=== PATIENT | male | born 1945 | race Caucasian/White ===

== ENCOUNTER 2020-02-09 00:59 | Outpatient (CLI) | payer MEDICARE, BC, SELFPAY ==
[2020-02-09 09:18] LABS: Abs Immature Grans 0.03 k/cumm (0.0-0.09); HCT 31.5 % (40.0-50.0); Mean Corp. HGB Concentration 31.7 g/dL (32.0-36.0); Mean Corpuscular Volume 107.1 fL (80-95); Mean Platelet Volume 12.5 fL (8.0-11.0); RBC 2.94 m/cumm (4.50-6.00); RBC Distribution Width 17.7 % (11.8-14.1); White Blood Cell Count 5.79 k/cumm (4.4-10.8)
[2020-02-09 09:39] LABS: Absolute Basophil Count 0.12 k/cumm (0.0-0.2); Absolute Eosinophil Count 0.23 k/cumm (0.0-0.7); Absolute Lymphocyte Count 1.51 k/cumm (1.2-3.4); Absolute Monocyte Count 0.87 k/cumm (0.11-0.7); Absolute Neutrophil Count 3.01 k/cumm (1.2-6.7); Anisocytosis 2+; Basophilic Stippling Present; Diff Comment Manual Differential; Hypochromasia 1+; Macrocytosis 2+; Polychromasia Present
[2020-02-09 09:40] LABS: Platelet Count 310 x1000/uL (130-400)
[2020-02-09 09:41] LABS: Poikilocytes 2+
== END 2020-02-09 01:19 ==
PROVIDERS: Visit Provider Internal Medicine Hematology & Oncology
DX: N18.3 Chronic kidney disease, stage 3 (moderate) (principal); D63.1 Anemia in chronic kidney disease
CPT/HCPCS: 36415; 85025

== ENCOUNTER 2020-02-23 02:17 | Outpatient (CLI) | payer MEDICARE, BC, SELFPAY ==
[2020-02-23 10:38] LABS: Abs Immature Grans 0.05 10^3/uL (0.0-0.06); Absolute Basophil Count 0.05 10^3/uL (0.0-0.2); Absolute Eosinophil Count 0.16 10^3/uL (0.0-0.7); Absolute Lymphocyte Count 1.24 10^3/uL (1.2-3.4); Absolute Monocyte Count 0.75 10^3/uL (0.1-0.8); Absolute Neutrophil Count 2.21 10^3/uL (1.2-6.7); Basophils % 1.1; Eosinophils % 3.6; HCT 30.5 % (40.0-50.0); HGB 9.8 g/dL (13.5-17.5); Immature Grans % 1.1; Lymphocytes % 27.8; MCH 34.1 pg (27.0-33.0); MCHC 32.1 % (32.0-36.0); MCV 106.3 fL (80-95); MPV 13.6 fL (8.0-11.0); Monocytes % 16.8; Neutrophils % 49.6; Nucleated RBC 0 %; RBC 2.87 10^6/uL (4.36-5.78); RDW 17.4 % (11.8-14.1); RDW-SD 66.7 fL; WBC 4.46 10^3/uL (4.4-10.8)
[2020-02-23 11:06] LABS: Platelet Count 272 10^3/uL (130-400)
[2020-02-23 11:08] LABS: Anisocytosis 2+; Macrocytosis 1+; Polychromasia Present
[2020-02-23 11:09] LABS: Poikilocytes 2+
[2020-02-23 11:10] LABS: Diff Comment RBC Morph Reviewed
== END 2020-02-23 02:37 ==
PROVIDERS: Visit Provider Internal Medicine Hematology & Oncology
DX: N18.3 Chronic kidney disease, stage 3 (moderate) (principal); D63.1 Anemia in chronic kidney disease
CPT/HCPCS: 36415; 85025

== ENCOUNTER 2020-03-08 08:49 | Outpatient (CLI) | payer MEDICARE, BC, SELFPAY ==
[2020-03-08 09:08] LABS: Abs Immature Grans 0.05 10^3/uL (0.0-0.06); Absolute Basophil Count 0.11 10^3/uL (0.0-0.2); Absolute Eosinophil Count 0.75 10^3/uL (0.0-0.7); Absolute Lymphocyte Count 1.32 10^3/uL (1.2-3.4); Absolute Monocyte Count 0.72 10^3/uL (0.1-0.8); Basophils % 1.9; Eosinophils % 12.8; HCT 31.4 % (40.0-50.0); HGB 9.6 g/dL (13.5-17.5); Immature Grans % 0.9; Lymphocytes % 22.6; MCH 32.9 pg (27.0-33.0); MCHC 30.6 % (32.0-36.0); MCV 107.5 fL (80-95); MPV 12.7 fL (8.0-11.0); Monocytes % 12.3; Neutrophils % 49.5; Nucleated RBC 0 %; Platelet Count 341 10^3/uL (130-400); RBC 2.92 10^6/uL (4.36-5.78); RDW 17.1 % (11.8-14.1); RDW-SD 65.2 fL; WBC 5.85 10^3/uL (4.4-10.8)
[2020-03-08 09:42] LABS: Diff Comment RBC Morph Reviewed
[2020-03-08 09:43] LABS: Anisocytosis 1+; Macrocytosis 1+; Poikilocytes 2+
== END 2020-03-08 09:09 ==
PROVIDERS: Visit Provider Internal Medicine Hematology & Oncology
DX: D63.1 Anemia in chronic kidney disease (principal); N18.3 Chronic kidney disease, stage 3 (moderate)
CPT/HCPCS: 36415; 85025

== ENCOUNTER 2020-03-22 03:42 | Outpatient (CLI) | payer MEDICARE, BC, SELFPAY ==
[2020-03-22 09:19] LABS: Abs Immature Grans 0.12 10^3/uL (0.0-0.06); Absolute Basophil Count 0.05 10^3/uL (0.0-0.2); Absolute Eosinophil Count 0.08 10^3/uL (0.0-0.7); Absolute Lymphocyte Count 1.15 10^3/uL (1.2-3.4); Absolute Monocyte Count 0.98 10^3/uL (0.1-0.8); Absolute Neutrophil Count 4.45 10^3/uL (1.2-6.7); Basophils % 0.7; Eosinophils % 1.2; HCT 30.6 % (40.0-50.0); HGB 9.6 g/dL (13.5-17.5); Immature Grans % 1.8; Lymphocytes % 16.8; MCH 33.8 pg (27.0-33.0); MCHC 31.4 % (32.0-36.0); MCV 107.7 fL (80-95); MPV 13.1 fL (8.0-11.0); Monocytes % 14.3; Neutrophils % 65.2; Nucleated RBC 0 %; Platelet Count 319 10^3/uL (130-400); RBC 2.84 10^6/uL (4.36-5.78); RDW 17.7 % (11.8-14.1); WBC 6.83 10^3/uL (4.4-10.8)
[2020-03-22 09:40] LABS: Anisocytosis 2+; Diff Comment RBC Morph Reviewed; Macrocytosis 2+; Microcytosis 1+
[2020-03-22 09:41] LABS: Ovalocytes 2+
[2020-03-22 09:42] LABS: Poikilocytes 3+
== END 2020-03-22 04:02 ==
PROVIDERS: Visit Provider Internal Medicine Hematology & Oncology
DX: D63.1 Anemia in chronic kidney disease (principal); N18.3 Chronic kidney disease, stage 3 (moderate)
CPT/HCPCS: 36415; 85025

== ENCOUNTER 2020-04-05 04:24 | Outpatient (CLI) | payer MEDICARE, BC, SELFPAY ==
[2020-04-05 08:40] LABS: Abs Immature Grans 0.04 10^3/uL (0.0-0.06); Absolute Basophil Count 0.07 10^3/uL (0.0-0.2); Absolute Eosinophil Count 0.21 10^3/uL (0.0-0.7); Absolute Lymphocyte Count 1.11 10^3/uL (1.2-3.4); Absolute Monocyte Count 0.66 10^3/uL (0.1-0.8); Absolute Neutrophil Count 2.56 10^3/uL (1.2-6.7); Basophils % 1.5; Eosinophils % 4.5; HGB 9.8 g/dL (13.5-17.5); Immature Grans % 0.9; Lymphocytes % 23.9; MCHC 30.6 % (32.0-36.0); MCV 107.7 fL (80-95); MPV 12.6 fL (8.0-11.0); Monocytes % 14.2; Nucleated RBC 0 %; Platelet Count 274 10^3/uL (130-400); RBC 2.97 10^6/uL (4.36-5.78); RDW 17.3 % (11.8-14.1); RDW-SD 67.6 fL; WBC 4.65 10^3/uL (4.4-10.8)
[2020-04-05 09:05] LABS: Anisocytosis 2+; Diff Comment RBC Morph Reviewed; Macrocytosis 2+
[2020-04-05 09:06] LABS: Poikilocytes 2+
== END 2020-04-05 04:44 ==
PROVIDERS: Visit Provider Internal Medicine Hematology & Oncology
DX: N18.3 Chronic kidney disease, stage 3 (moderate) (principal); D63.1 Anemia in chronic kidney disease
CPT/HCPCS: 36415; 85025

== ENCOUNTER 2020-04-19 04:37 | Outpatient (CLI) | payer MEDICARE, BC, SELFPAY ==
[2020-04-19 08:54] LABS: Abs Immature Grans 0.05 10^3/uL (0.0-0.06); Absolute Basophil Count 0.07 10^3/uL (0.0-0.2); Absolute Eosinophil Count 0.24 10^3/uL (0.0-0.7); Absolute Lymphocyte Count 1.29 10^3/uL (1.2-3.4); Absolute Monocyte Count 0.84 10^3/uL (0.1-0.8); Absolute Neutrophil Count 2.99 10^3/uL (1.2-6.7); Basophils % 1.3; Eosinophils % 4.4; HCT 32.5 % (40.0-50.0); Immature Grans % 0.9; Lymphocytes % 23.5; MCH 33.8 pg (27.0-33.0); MCHC 30.8 % (32.0-36.0); MCV 109.8 fL (80-95); MPV 13.3 fL (8.0-11.0); Monocytes % 15.3; Neutrophils % 54.6; Nucleated RBC 0 %; RBC 2.96 10^6/uL (4.36-5.78); RDW 17.4 % (11.8-14.1); WBC 5.48 10^3/uL (4.4-10.8)
[2020-04-19 09:23] LABS: Anisocytosis 1+; Diff Comment RBC Morph Reviewed; Hypochromasia 1+; Macrocytosis 2+; Microcytosis 1+; Ovalocytes 2+; Platelet Count 283 10^3/uL (130-400)
[2020-04-19 09:24] LABS: Poikilocytes 2+
== END 2020-04-19 04:57 ==
PROVIDERS: Visit Provider Internal Medicine Hematology & Oncology
DX: N18.30 Chronic kidney disease, stage 3 unspecified (principal); D63.1 Anemia in chronic kidney disease
CPT/HCPCS: 36415; 85025

== ENCOUNTER 2020-05-03 02:43 | Outpatient (CLI) | payer MEDICARE, BC, SELFPAY ==
[2020-05-03 09:29] LABS: Abs Immature Grans 0.03 10^3/uL (0.0-0.06); Absolute Basophil Count 0.05 10^3/uL (0.0-0.2); Absolute Eosinophil Count 0.15 10^3/uL (0.0-0.7); Absolute Lymphocyte Count 1.09 10^3/uL (1.2-3.4); Absolute Monocyte Count 0.75 10^3/uL (0.1-0.8); Absolute Neutrophil Count 2.09 10^3/uL (1.2-6.7); Basophils % 1.2; Eosinophils % 3.6; Immature Grans % 0.7; Lymphocytes % 26.2; MCHC 31.3 % (32.0-36.0); MCV 108.8 fL (80-95); Neutrophils % 50.3; Nucleated RBC 0 %; Platelet Count 273 10^3/uL (130-400); RBC 2.94 10^6/uL (4.36-5.78); RDW 17.2 % (11.8-14.1); RDW-SD 67.3 fL; WBC 4.16 10^3/uL (4.4-10.8)
[2020-05-03 09:55] LABS: Anisocytosis 2+; Diff Comment RBC Morph Reviewed; Hypochromasia 1+; Macrocytosis 2+; Microcytosis 1+; Ovalocytes 2+; Polychromasia Present
[2020-05-03 09:56] LABS: Poikilocytes 2+
[2020-05-03 10:16] LABS: Ferritin 156 ng/mL (26-388)
== END 2020-05-03 03:03 ==
PROVIDERS: Visit Provider Internal Medicine Hematology & Oncology
DX: N18.30 Chronic kidney disease, stage 3 unspecified (principal); D63.1 Anemia in chronic kidney disease
CPT/HCPCS: 36415; 82728; 85025

== ENCOUNTER 2020-05-17 02:32 | Outpatient (CLI) | payer MEDICARE, BC, SELFPAY ==
[2020-05-17 09:16] LABS: Abs Immature Grans 0.03 10^3/uL (0.0-0.06); Absolute Basophil Count 0.05 10^3/uL (0.0-0.2); Absolute Lymphocyte Count 1.38 10^3/uL (1.2-3.4); Absolute Monocyte Count 0.69 10^3/uL (0.1-0.8); Absolute Neutrophil Count 1.99 10^3/uL (1.2-6.7); Basophils % 1.2; Eosinophils % 4.6; HCT 33.8 % (40.0-50.0); HGB 10.6 g/dL (13.5-17.5); Immature Grans % 0.7; Lymphocytes % 31.8; MCH 33.8 pg (27.0-33.0); MCHC 31.4 % (32.0-36.0); MCV 107.6 fL (80-95); MPV 12.8 fL (8.0-11.0); Monocytes % 15.9; Neutrophils % 45.8; Nucleated RBC 0 %; Platelet Count 309 10^3/uL (130-400); RBC 3.14 10^6/uL (4.36-5.78); RDW 17.2 % (11.8-14.1); RDW-SD 66.1 fL; WBC 4.34 10^3/uL (4.4-10.8)
== END 2020-05-17 02:52 ==
PROVIDERS: Visit Provider Internal Medicine Hematology & Oncology
DX: N18.30 Chronic kidney disease, stage 3 unspecified (principal); D63.1 Anemia in chronic kidney disease
CPT/HCPCS: 36415; 85025

== ENCOUNTER 2020-11-22 03:15 | Outpatient (CLI) | payer MEDICARE, BC, SELFPAY ==
[2020-11-22 13:35] LABS: Abs Immature Grans 0.02 10^3/uL (0.0-0.06); Absolute Basophil Count 0.03 10^3/uL (0.0-0.2); Absolute Eosinophil Count 0.14 10^3/uL (0.0-0.7); Absolute Lymphocyte Count 0.97 10^3/uL (1.2-3.4); Absolute Monocyte Count 0.39 10^3/uL (0.1-0.8); Absolute Neutrophil Count 1.84 10^3/uL (1.2-6.7); Basophils % 0.9; Eosinophils % 4.1; HCT 25.8 % (40.0-50.0); HGB 8.2 g/dL (13.5-17.5); Immature Grans % 0.6; Lymphocytes % 28.6; MCH 35.3 pg (27.0-33.0); MCHC 31.8 % (32.0-36.0); MCV 111.2 fL (80-95); Monocytes % 11.5; Neutrophils % 54.3; Nucleated RBC 0 %; Platelet Count 205 10^3/uL (130-400); RBC 2.32 10^6/uL (4.36-5.78); RDW 18.1 % (11.8-14.1); RDW-SD 70.6 fL; WBC 3.39 10^3/uL (4.4-10.8)
[2020-11-22 13:55] LABS: Diff Comment Diff Reviewed; Macrocytosis 2+; Poikilocytes 2+
[2020-11-22 14:01] LABS: Ferritin 169 ng/mL (26-388)
== END 2020-11-22 03:16 | disposition home or self-care (01) ==
LOC: LBO 03:15
PROVIDERS: Visit Provider Internal Medicine Hematology & Oncology
DX: D46.20 Refractory anemia with excess of blasts, unspecified (principal)
CPT/HCPCS: 82728; 85025

== ENCOUNTER 2020-11-29 09:41 | Outpatient (CLI) | payer MEDICARE, BC, SELFPAY ==
[2020-11-29 10:02] LABS: Abs Immature Grans 0.06 10^3/uL (0.0-0.06); Absolute Basophil Count 0.07 10^3/uL (0.0-0.2); Absolute Eosinophil Count 0.21 10^3/uL (0.0-0.7); Absolute Lymphocyte Count 1.51 10^3/uL (1.2-3.4); Absolute Monocyte Count 0.43 10^3/uL (0.1-0.8); Absolute Neutrophil Count 4.05 10^3/uL (1.2-6.7); Basophils % 1.1; Eosinophils % 3.3; HCT 26.1 % (40.0-50.0); HGB 8.2 g/dL (13.5-17.5); Immature Grans % 0.9; Lymphocytes % 23.9; MCH 34.6 pg (27.0-33.0); MCHC 31.4 % (32.0-36.0); MCV 110.1 fL (80-95); MPV 12.5 fL (8.0-11.0); Monocytes % 6.8; Nucleated RBC 0 %; Platelet Count 489 10^3/uL (130-400); RBC 2.37 10^6/uL (4.36-5.78); RDW 18.5 % (11.8-14.1); RDW-SD 72.7 fL; WBC 6.33 10^3/uL (4.4-10.8)
[2020-11-29 10:30] LABS: ALT 35 U/L (16-63); AST 86 U/L (15-37); Albumin 3.8 g/dL (3.4-5.0); Alkaline Phosphatase 48 U/L (46-116); Anion Gap 8.4 mmol/L (3-11); BUN 42 mg/dL (7-18); Bilirubin, Total 0.8 mg/dL (0.2-1.0); CO2 25.6 mmol/L (21.0-32.0); Calcium 8.3 mg/dL (8.5-10.1); Chloride 104 mmol/L (98-107); Estimated GFR 32.65 (mL/min/1.73m2); Ferritin 181 ng/mL (26-388); Glucose 146 mg/dL (74-106); Sodium 138 mmol/L (136-145); Total Protein 6.9 g/dL (6.4-8.2)
== END 2020-11-29 09:42 | disposition home or self-care (01) ==
LOC: LBO 09:42
PROVIDERS: Visit Provider Internal Medicine Hematology & Oncology
DX: D46.20 Refractory anemia with excess of blasts, unspecified (principal); N18.30 Chronic kidney disease, stage 3 unspecified; D63.1 Anemia in chronic kidney disease
CPT/HCPCS: 36415; 80053; 82728; 85025

== ENCOUNTER 2020-12-06 12:31 | Outpatient (CLI) | payer MEDICARE, BC, SELFPAY ==
[2020-12-06 12:49] LABS: Abs Immature Grans 0.02 10^3/uL (0.0-0.06); Absolute Basophil Count 0.06 10^3/uL (0.0-0.2); Absolute Eosinophil Count 0.12 10^3/uL (0.0-0.7); Absolute Lymphocyte Count 1.14 10^3/uL (1.2-3.4); Absolute Monocyte Count 0.41 10^3/uL (0.1-0.8); Absolute Neutrophil Count 2.97 10^3/uL (1.2-6.7); Basophils % 1.3; Eosinophils % 2.5; HCT 24.3 % (40.0-50.0); HGB 7.7 g/dL (13.5-17.5); Immature Grans % 0.4; Lymphocytes % 24.2; MCH 34.8 pg (27.0-33.0); MCHC 31.7 % (32.0-36.0); MPV 12.2 fL (8.0-11.0); Monocytes % 8.7; Neutrophils % 62.9; Nucleated RBC 0 %; Platelet Count 492 10^3/uL (130-400); RBC 2.21 10^6/uL (4.36-5.78); RDW 17.8 % (11.8-14.1); RDW-SD 68.1 fL; WBC 4.72 10^3/uL (4.4-10.8)
[2020-12-06 13:01] LABS: Diff Comment RBC Morph Reviewed
[2020-12-06 13:03] LABS: Macrocytosis 2+; Poikilocytes 1+
[2020-12-06 13:13] LABS: ALT 30 U/L (16-63); AST 74 U/L (15-37); Alkaline Phosphatase 54 U/L (46-116); Anion Gap 13.5 mmol/L (3-11); BUN 50 mg/dL (7-18); CO2 23.5 mmol/L (21.0-32.0); Calcium 8.3 mg/dL (8.5-10.1); Chloride 105 mmol/L (98-107); Estimated GFR 32.65 (mL/min/1.73m2); Ferritin 170 ng/mL (26-388); Glucose 124 mg/dL (74-106); Potassium 4.7 mmol/L (3.5-5.1); Sodium 142 mmol/L (136-145); Total Protein 7.1 g/dL (6.4-8.2)
== END 2020-12-06 12:32 | disposition home or self-care (01) ==
PROVIDERS: Visit Provider Internal Medicine Hematology & Oncology
DX: D46.20 Refractory anemia with excess of blasts, unspecified (principal); N18.30 Chronic kidney disease, stage 3 unspecified; D63.1 Anemia in chronic kidney disease
CPT/HCPCS: 36415; 80053; 86850; 86900; 86901; 86920; 82728; 85025

== ENCOUNTER 2020-12-07 04:47 | Outpatient (RCR) | payer MEDICARE, BC, SELFPAY ==
[2020-12-07] MEDS: Normal Saline Flush 10 ML SYR IVP (08:15)
[2020-12-07 08:35] VITALS: BP 170/58; PULSE 74; RESP 16; TEMP 36.3; O2SAT 98
[2020-12-07 08:50] VITALS: BP 183/78; PULSE 69; RESP 18; TEMP 36.6; O2SAT 100
[2020-12-07 09:13] VITALS: BP 155/75; PULSE 65; RESP 16; TEMP 36.3; O2SAT 100
[2020-12-07 09:20] VITALS: BP 159/70; PULSE 67; RESP 16; TEMP 36.2; O2SAT 99
[2020-12-07 10:25] VITALS: BP 137/69; PULSE 67; RESP 16; TEMP 36.4; O2SAT 100
== END 2020-12-17 23:59 | disposition home or self-care (01) ==
LOC: INF 04:47
PROVIDERS: Visit Provider Internal Medicine Hematology & Oncology
DX: D46.9 Myelodysplastic syndrome, unspecified (principal)
CPT/HCPCS: 36415; 36430; 86850; 86900; 86901; 86920; P9016

== ENCOUNTER 2020-12-13 02:38 | Outpatient (CLI) | payer MEDICARE, BC, SELFPAY ==
[2020-12-13 14:48] LABS: Abs Immature Grans 0.01 10^3/uL (0.0-0.06); Absolute Basophil Count 0.03 10^3/uL (0.0-0.2); Absolute Eosinophil Count 0.14 10^3/uL (0.0-0.7); Absolute Lymphocyte Count 0.93 10^3/uL (1.2-3.4); Absolute Monocyte Count 0.56 10^3/uL (0.1-0.8); Absolute Neutrophil Count 1.77 10^3/uL (1.2-6.7); Basophils % 0.9; Eosinophils % 4.1; HCT 26.1 % (40.0-50.0); HGB 8.3 g/dL (13.5-17.5); Immature Grans % 0.3; MCH 34.2 pg (27.0-33.0); MCHC 31.8 % (32.0-36.0); MCV 107.4 fL (80-95); Monocytes % 16.3; Neutrophils % 51.4; Nucleated RBC 0 %; Platelet Count 295 10^3/uL (130-400); RBC 2.43 10^6/uL (4.36-5.78); RDW 18.6 % (11.8-14.1); RDW-SD 71.7 fL; WBC 3.44 10^3/uL (4.4-10.8)
[2020-12-13 14:56] LABS: Diff Comment Diff Reviewed; Macrocytosis 1+
[2020-12-13 15:15] LABS: ALT 26 U/L (16-63); AST 51 U/L (15-37); Albumin 3.5 g/dL (3.4-5.0); Alkaline Phosphatase 50 U/L (46-116); BUN 40 mg/dL (7-18); Bilirubin, Total 0.8 mg/dL (0.2-1.0); CREATININE 1.9 mg/dL (0.70-1.30); Calcium 7.9 mg/dL (8.5-10.1); Chloride 107 mmol/L (98-107); Estimated GFR 34.64 (mL/min/1.73m2); Ferritin 161 ng/mL (26-388); Glucose 214 mg/dL (74-106); Sodium 141 mmol/L (136-145); Total Protein 6.2 g/dL (6.4-8.2)
== END 2020-12-13 02:39 | disposition home or self-care (01) ==
LOC: LBO 02:38
PROVIDERS: Visit Provider Internal Medicine Hematology & Oncology
DX: D46.20 Refractory anemia with excess of blasts, unspecified (principal); N18.30 Chronic kidney disease, stage 3 unspecified; D63.1 Anemia in chronic kidney disease
CPT/HCPCS: 36415; 80053; 86850; 86900; 86901; 82728; 85025

== ENCOUNTER 2020-12-20 03:09 | Outpatient (CLI) | payer MEDICARE, BC, SELFPAY ==
[2020-12-20 13:32] LABS: Abs Immature Grans 0.02 10^3/uL (0.0-0.06); Absolute Basophil Count 0.02 10^3/uL (0.0-0.2); Absolute Eosinophil Count 0.27 10^3/uL (0.0-0.7); Absolute Lymphocyte Count 0.88 10^3/uL (1.2-3.4); Absolute Monocyte Count 0.62 10^3/uL (0.1-0.8); Absolute Neutrophil Count 2.46 10^3/uL (1.2-6.7); Basophils % 0.5; Eosinophils % 6.3; HCT 26.8 % (40.0-50.0); HGB 8.6 g/dL (13.5-17.5); Immature Grans % 0.5; Lymphocytes % 20.6; MCH 34.3 pg (27.0-33.0); MCHC 32.1 % (32.0-36.0); MCV 106.8 fL (80-95); MPV 12.7 fL (8.0-11.0); Monocytes % 14.5; Neutrophils % 57.6; Nucleated RBC 0 %; Platelet Count 253 10^3/uL (130-400); RBC 2.51 10^6/uL (4.36-5.78); RDW 18.3 % (11.8-14.1); WBC 4.27 10^3/uL (4.4-10.8)
[2020-12-20 14:07] LABS: ALT 31 U/L (16-63); AST 69 U/L (15-37); Albumin 3.7 g/dL (3.4-5.0); Alkaline Phosphatase 55 U/L (46-116); Anion Gap 8.3 mmol/L (3-11); BUN 39 mg/dL (7-18); Bilirubin, Total 0.9 mg/dL (0.2-1.0); CO2 27.7 mmol/L (21.0-32.0); CREATININE 1.9 mg/dL (0.70-1.30); Calcium 8.3 mg/dL (8.5-10.1); Chloride 105 mmol/L (98-107); Estimated GFR 34.64 (mL/min/1.73m2); Ferritin 210 ng/mL (26-388); Glucose 151 mg/dL (74-106); Potassium 4.5 mmol/L (3.5-5.1); Sodium 141 mmol/L (136-145); Total Protein 6.7 g/dL (6.4-8.2)
== END 2020-12-20 03:10 | disposition home or self-care (01) ==
LOC: LBO 03:09
PROVIDERS: Visit Provider Internal Medicine Hematology & Oncology
DX: D46.20 Refractory anemia with excess of blasts, unspecified (principal); N18.30 Chronic kidney disease, stage 3 unspecified; D63.1 Anemia in chronic kidney disease
CPT/HCPCS: 36415; 80053; 86900; 86901; 82728; 85025

== ENCOUNTER 2020-12-27 02:53 | Outpatient (CLI) | payer MEDICARE, BC, SELFPAY ==
[2020-12-27 08:10] LABS: Abs Immature Grans 0.02 10^3/uL (0.0-0.06); Absolute Basophil Count 0.04 10^3/uL (0.0-0.2); Absolute Lymphocyte Count 1.21 10^3/uL (1.2-3.4); Absolute Monocyte Count 0.75 10^3/uL (0.1-0.8); Absolute Neutrophil Count 2.86 10^3/uL (1.2-6.7); Basophils % 0.8; Eosinophils % 5.8; HCT 28.7 % (40.0-50.0); HGB 8.9 g/dL (13.5-17.5); Immature Grans % 0.4; Lymphocytes % 23.4; MCH 33.6 pg (27.0-33.0); MCV 108.3 fL (80-95); Monocytes % 14.5; Neutrophils % 55.1; Nucleated RBC 0 %; Platelet Count 277 10^3/uL (130-400); RBC 2.65 10^6/uL (4.36-5.78); RDW 18.3 % (11.8-14.1); RDW-SD 69.1 fL; WBC 5.18 10^3/uL (4.4-10.8)
[2020-12-27 08:35] LABS: Anisocytosis 2+; Basophilic Stippling Present; Diff Comment Diff Reviewed; Hypochromasia 1+; Macrocytosis 2+; Polychromasia Present
[2020-12-27 08:36] LABS: Poikilocytes 2+
[2020-12-27 08:57] LABS: ALT 31 U/L (16-63); AST 78 U/L (15-37); Albumin 3.9 g/dL (3.4-5.0); Alkaline Phosphatase 55 U/L (46-116); Anion Gap 7.9 mmol/L (3-11); BUN 57 mg/dL (7-18); Bilirubin, Total 0.9 mg/dL (0.2-1.0); CO2 27.1 mmol/L (21.0-32.0); CREATININE 2.3 mg/dL (0.70-1.30); Calcium 8.5 mg/dL (8.5-10.1); Chloride 105 mmol/L (98-107); Estimated GFR 27.78 (mL/min/1.73m2); Ferritin 211 ng/mL (26-388); Glucose 194 mg/dL (74-106); Potassium 4.5 mmol/L (3.5-5.1); Sodium 140 mmol/L (136-145); Total Protein 6.9 g/dL (6.4-8.2)
== END 2020-12-27 02:54 | disposition home or self-care (01) ==
LOC: LBO 02:53
PROVIDERS: Visit Provider Internal Medicine Hematology & Oncology
DX: D46.20 Refractory anemia with excess of blasts, unspecified (principal); N18.30 Chronic kidney disease, stage 3 unspecified; D63.1 Anemia in chronic kidney disease
CPT/HCPCS: 36415; 80053; 86900; 86901; 82728; 85025

== ENCOUNTER 2021-01-03 02:00 | Outpatient (CLI) | payer MEDICARE, BC, SELFPAY ==
[2021-01-03 08:15] LABS: Abs Immature Grans 0.03 10^3/uL (0.0-0.06); Absolute Basophil Count 0.05 10^3/uL (0.0-0.2); Absolute Eosinophil Count 0.13 10^3/uL (0.0-0.7); Absolute Lymphocyte Count 1.09 10^3/uL (1.2-3.4); Absolute Neutrophil Count 1.99 10^3/uL (1.2-6.7); Basophils % 1.3; Eosinophils % 3.3; HCT 29.6 % (40.0-50.0); HGB 9.3 g/dL (13.5-17.5); Immature Grans % 0.8; Lymphocytes % 27.3; MCH 34.4 pg (27.0-33.0); MCHC 31.4 % (32.0-36.0); MCV 109.6 fL (80-95); MPV 12.9 fL (8.0-11.0); Monocytes % 17.5; Neutrophils % 49.8; Nucleated RBC 0 %; Platelet Count 242 10^3/uL (130-400); RDW 18.7 % (11.8-14.1); RDW-SD 72.4 fL; WBC 3.99 10^3/uL (4.4-10.8)
[2021-01-03 08:29] LABS: ALT 24 U/L (16-63); AST 61 U/L (15-37); Albumin 3.8 g/dL (3.4-5.0); Alkaline Phosphatase 48 U/L (46-116); Anion Gap 10.2 mmol/L (3-11); BUN 41 mg/dL (7-18); Bilirubin, Total 0.8 mg/dL (0.2-1.0); CO2 24.8 mmol/L (21.0-32.0); CREATININE 1.9 mg/dL (0.70-1.30); Calcium 8.5 mg/dL (8.5-10.1); Chloride 105 mmol/L (98-107); Estimated GFR 34.64 (mL/min/1.73m2); Glucose 136 mg/dL (74-106); Potassium 4.7 mmol/L (3.5-5.1); Sodium 140 mmol/L (136-145); Total Protein 6.9 g/dL (6.4-8.2)
[2021-01-03 08:51] LABS: Ferritin 200 ng/mL (26-388)
== END 2021-01-03 02:01 | disposition home or self-care (01) ==
LOC: LBO 02:00
PROVIDERS: Visit Provider Internal Medicine Hematology & Oncology
DX: D46.20 Refractory anemia with excess of blasts, unspecified (principal); N18.30 Chronic kidney disease, stage 3 unspecified; D63.1 Anemia in chronic kidney disease
CPT/HCPCS: 36415; 80053; 86900; 86901; 82728; 85025

== ENCOUNTER 2021-01-10 03:43 | Outpatient (CLI) | payer MEDICARE, BC, SELFPAY ==
[2021-01-10 09:57] LABS: Abs Immature Grans 0.04 10^3/uL (0.0-0.06); Absolute Basophil Count 0.06 10^3/uL (0.0-0.2); Absolute Eosinophil Count 0.17 10^3/uL (0.0-0.7); Absolute Lymphocyte Count 1.21 10^3/uL (1.2-3.4); Absolute Monocyte Count 0.74 10^3/uL (0.1-0.8); Absolute Neutrophil Count 2.39 10^3/uL (1.2-6.7); Basophils % 1.3; Eosinophils % 3.7; HCT 27.8 % (40.0-50.0); HGB 8.9 g/dL (13.5-17.5); Immature Grans % 0.9; Lymphocytes % 26.2; MCH 34.8 pg (27.0-33.0); MCV 108.6 fL (80-95); MPV 12.6 fL (8.0-11.0); Monocytes % 16.1; Neutrophils % 51.8; Nucleated RBC 0 %; Platelet Count 236 10^3/uL (130-400); RBC 2.56 10^6/uL (4.36-5.78); RDW 18.7 % (11.8-14.1); RDW-SD 71.9 fL; WBC 4.61 10^3/uL (4.4-10.8)
[2021-01-10 10:21] LABS: ALT 33 U/L (16-63); AST 78 U/L (15-37); Albumin 3.9 g/dL (3.4-5.0); Alkaline Phosphatase 50 U/L (46-116); Anion Gap 7.5 mmol/L (3-11); BUN 42 mg/dL (7-18); CO2 27.5 mmol/L (21.0-32.0); CREATININE 1.9 mg/dL (0.70-1.30); Calcium 8.5 mg/dL (8.5-10.1); Chloride 104 mmol/L (98-107); Estimated GFR 34.64 (mL/min/1.73m2); Ferritin 231 ng/mL (26-388); Glucose 131 mg/dL (74-106); Potassium 4.8 mmol/L (3.5-5.1); Sodium 139 mmol/L (136-145)
== END 2021-01-10 03:44 | disposition home or self-care (01) ==
LOC: LBO 03:43
PROVIDERS: Visit Provider Internal Medicine Hematology & Oncology
DX: D46.20 Refractory anemia with excess of blasts, unspecified (principal); N18.30 Chronic kidney disease, stage 3 unspecified; D63.1 Anemia in chronic kidney disease
CPT/HCPCS: 36415; 80053; 86900; 86901; 82728; 85025

== ENCOUNTER 2021-01-17 04:10 | Outpatient (CLI) | payer MEDICARE, BC, SELFPAY ==
[2021-01-17 09:46] LABS: Abs Immature Grans 0.04 10^3/uL (0.0-0.06); Absolute Basophil Count 0.08 10^3/uL (0.0-0.2); Absolute Lymphocyte Count 1.29 10^3/uL (1.2-3.4); Absolute Monocyte Count 0.76 10^3/uL (0.1-0.8); Absolute Neutrophil Count 2.79 10^3/uL (1.2-6.7); Basophils % 1.6; Eosinophils % 3.9; HCT 27.8 % (40.0-50.0); HGB 8.7 g/dL (13.5-17.5); Immature Grans % 0.8; MCH 34.3 pg (27.0-33.0); MCHC 31.3 % (32.0-36.0); MCV 109.4 fL (80-95); MPV 12.8 fL (8.0-11.0); Monocytes % 14.7; Nucleated RBC 0 %; Platelet Count 247 10^3/uL (130-400); RBC 2.54 10^6/uL (4.36-5.78); RDW 18.6 % (11.8-14.1); RDW-SD 71.8 fL; WBC 5.16 10^3/uL (4.4-10.8)
[2021-01-17 10:08] LABS: ALT 33 U/L (16-63); AST 78 U/L (15-37); Albumin 3.8 g/dL (3.4-5.0); Alkaline Phosphatase 48 U/L (46-116); Anion Gap 10.8 mmol/L (3-11); BUN 54 mg/dL (7-18); CO2 25.2 mmol/L (21.0-32.0); CREATININE 2.1 mg/dL (0.70-1.30); Calcium 8.4 mg/dL (8.5-10.1); Chloride 104 mmol/L (98-107); Estimated GFR 30.86 (mL/min/1.73m2); Ferritin 254 ng/mL (26-388); Glucose 163 mg/dL (74-106); Potassium 4.7 mmol/L (3.5-5.1); Sodium 140 mmol/L (136-145); Total Protein 6.9 g/dL (6.4-8.2)
== END 2021-01-17 04:11 | disposition home or self-care (01) ==
LOC: LBO 04:10
PROVIDERS: Visit Provider Internal Medicine Hematology & Oncology
DX: D46.20 Refractory anemia with excess of blasts, unspecified (principal); N18.30 Chronic kidney disease, stage 3 unspecified; D63.1 Anemia in chronic kidney disease
CPT/HCPCS: 36415; 80053; 86900; 86901; 82728; 85025

== ENCOUNTER 2021-01-24 02:57 | Outpatient (CLI) | payer MEDICARE, BC, SELFPAY ==
[2021-01-24 09:48] LABS: Abs Immature Grans 0.02 10^3/uL (0.0-0.06); Absolute Basophil Count 0.06 10^3/uL (0.0-0.2); Absolute Eosinophil Count 0.17 10^3/uL (0.0-0.7); Absolute Lymphocyte Count 1.32 10^3/uL (1.2-3.4); Absolute Monocyte Count 0.81 10^3/uL (0.1-0.8); Absolute Neutrophil Count 2.05 10^3/uL (1.2-6.7); Basophils % 1.4; Eosinophils % 3.8; HCT 26.8 % (40.0-50.0); HGB 8.3 g/dL (13.5-17.5); Immature Grans % 0.5; Lymphocytes % 29.8; MCH 33.7 pg (27.0-33.0); MCV 108.9 fL (80-95); MPV 13.1 fL (8.0-11.0); Monocytes % 18.3; Neutrophils % 46.2; Nucleated RBC 0 %; RBC 2.46 10^6/uL (4.36-5.78); RDW 18.7 % (11.8-14.1); RDW-SD 71.6 fL; WBC 4.43 10^3/uL (4.4-10.8)
[2021-01-24 10:01] LABS: ALT 29 U/L (16-63); AST 80 U/L (15-37); Albumin 3.8 g/dL (3.4-5.0); Alkaline Phosphatase 46 U/L (46-116); BUN 52 mg/dL (7-18); Bilirubin, Total 0.9 mg/dL (0.2-1.0); CREATININE 2.2 mg/dL (0.70-1.30); Calcium 8.7 mg/dL (8.5-10.1); Chloride 106 mmol/L (98-107); Estimated GFR 29.25 (mL/min/1.73m2); Glucose 127 mg/dL (74-106); Potassium 4.6 mmol/L (3.5-5.1); Sodium 142 mmol/L (136-145)
[2021-01-24 10:10] LABS: Diff Comment Diff Reviewed; Platelet Count 217 10^3/uL (130-400)
[2021-01-24 10:11] LABS: Hypochromasia 2+; Macrocytosis 1+; Polychromasia Present
[2021-01-24 10:12] LABS: Poikilocytes 2+
[2021-01-24 10:28] LABS: Ferritin 239 ng/mL (26-388)
== END 2021-01-24 02:58 | disposition home or self-care (01) ==
LOC: LBO 02:57
PROVIDERS: Visit Provider Internal Medicine Hematology & Oncology
DX: D46.20 Refractory anemia with excess of blasts, unspecified (principal); N18.30 Chronic kidney disease, stage 3 unspecified; D63.1 Anemia in chronic kidney disease
CPT/HCPCS: 36415; 80053; 86900; 86901; 82728; 85025

== ENCOUNTER 2021-01-31 03:30 | Outpatient (CLI) | payer MEDICARE, BC, SELFPAY ==
[2021-01-31 09:43] LABS: Abs Immature Grans 0.02 10^3/uL (0.0-0.06); Absolute Basophil Count 0.06 10^3/uL (0.0-0.2); Absolute Eosinophil Count 0.15 10^3/uL (0.0-0.7); Absolute Lymphocyte Count 0.99 10^3/uL (1.2-3.4); Absolute Neutrophil Count 2.06 10^3/uL (1.2-6.7); Basophils % 1.5; Eosinophils % 3.9; HCT 27.2 % (40.0-50.0); HGB 8.5 g/dL (13.5-17.5); Immature Grans % 0.5; Lymphocytes % 25.5; MCH 34.1 pg (27.0-33.0); MCHC 31.3 % (32.0-36.0); MCV 109.2 fL (80-95); Monocytes % 15.5; Neutrophils % 53.1; Nucleated RBC 0 %; Platelet Count 209 10^3/uL (130-400); RBC 2.49 10^6/uL (4.36-5.78); RDW 18.9 % (11.8-14.1); RDW-SD 73.7 fL; WBC 3.88 10^3/uL (4.4-10.8)
[2021-01-31 09:59] LABS: Diff Comment Diff Reviewed; Macrocytosis 2+; Poikilocytes 2+
[2021-01-31 10:10] LABS: Ferritin 236 ng/mL (26-388)
== END 2021-01-31 03:31 | disposition home or self-care (01) ==
LOC: LBO 03:30
PROVIDERS: Visit Provider Internal Medicine Hematology & Oncology
DX: D46.20 Refractory anemia with excess of blasts, unspecified (principal)
CPT/HCPCS: 36415; 86900; 86901; 82728; 85025

== ENCOUNTER 2021-02-07 03:37 | Outpatient (CLI) | payer MEDICARE, BC, SELFPAY ==
[2021-02-07 09:40] LABS: Abs Immature Grans 0.02 10^3/uL (0.0-0.06); Absolute Basophil Count 0.06 10^3/uL (0.0-0.2); Absolute Eosinophil Count 0.19 10^3/uL (0.0-0.7); Absolute Lymphocyte Count 1.18 10^3/uL (1.2-3.4); Absolute Monocyte Count 0.62 10^3/uL (0.1-0.8); Absolute Neutrophil Count 2.17 10^3/uL (1.2-6.7); Basophils % 1.4; Eosinophils % 4.5; HCT 25.5 % (40.0-50.0); Immature Grans % 0.5; Lymphocytes % 27.8; MCH 33.9 pg (27.0-33.0); MCHC 31.4 % (32.0-36.0); MCV 108.1 fL (80-95); MPV 13.4 fL (8.0-11.0); Monocytes % 14.6; Neutrophils % 51.2; Nucleated RBC 0 %; RBC 2.36 10^6/uL (4.36-5.78); RDW 18.9 % (11.8-14.1); RDW-SD 72.1 fL; WBC 4.24 10^3/uL (4.4-10.8)
[2021-02-07 09:52] LABS: Platelet Count 199 10^3/uL (130-400)
[2021-02-07 09:53] LABS: Anisocytosis 2+; Basophilic Stippling Present; Diff Comment Diff Reviewed; Macrocytosis 2+; Microcytosis 1+; Ovalocytes 2+; Polychromasia Present
[2021-02-07 09:54] LABS: Poikilocytes 2+
== END 2021-02-07 03:38 | disposition home or self-care (01) ==
LOC: LBO 03:37
PROVIDERS: Visit Provider Internal Medicine Hematology & Oncology
DX: D46.20 Refractory anemia with excess of blasts, unspecified (principal)
CPT/HCPCS: 36415; 85025

== ENCOUNTER 2021-02-14 04:21 | Outpatient (CLI) | payer MEDICARE, BC, SELFPAY ==
[2021-02-14 10:02] LABS: Abs Immature Grans 0.02 10^3/uL (0.0-0.06); Absolute Basophil Count 0.08 10^3/uL (0.0-0.2); Absolute Eosinophil Count 0.16 10^3/uL (0.0-0.7); Absolute Lymphocyte Count 0.92 10^3/uL (1.2-3.4); Absolute Monocyte Count 0.71 10^3/uL (0.1-0.8); Absolute Neutrophil Count 2.51 10^3/uL (1.2-6.7); Basophils % 1.8; Eosinophils % 3.6; HCT 26.7 % (40.0-50.0); HGB 8.2 g/dL (13.5-17.5); Immature Grans % 0.5; Lymphocytes % 20.9; MCH 34.3 pg (27.0-33.0); MCHC 30.7 % (32.0-36.0); MCV 111.7 fL (80-95); Monocytes % 16.1; Neutrophils % 57.1; Nucleated RBC 0 %; RBC 2.39 10^6/uL (4.36-5.78); RDW 19.9 % (11.8-14.1); RDW-SD 78.1 fL
[2021-02-14 10:24] LABS: Ferritin 198 ng/mL (26-388)
[2021-02-14 10:28] LABS: Anisocytosis 3+; Diff Comment Diff Reviewed; Hypochromasia 1+; Macrocytosis 3+; Microcytosis 1+; Polychromasia Present
[2021-02-14 10:29] LABS: Platelet Count 229 10^3/uL (130-400); Poikilocytes 2+
== END 2021-02-14 04:22 | disposition home or self-care (01) ==
LOC: LBO 04:21
PROVIDERS: Visit Provider Internal Medicine Hematology & Oncology
DX: D46.20 Refractory anemia with excess of blasts, unspecified (principal)
CPT/HCPCS: 36415; 86900; 86901; 82728; 85025

== ENCOUNTER 2021-02-21 03:50 | Outpatient (CLI) | payer MEDICARE, BC, SELFPAY ==
[2021-02-21 09:39] LABS: Abs Immature Grans 0.02 10^3/uL (0.0-0.06); Absolute Basophil Count 0.06 10^3/uL (0.0-0.2); Absolute Eosinophil Count 0.14 10^3/uL (0.0-0.7); Absolute Lymphocyte Count 1.13 10^3/uL (1.2-3.4); Absolute Neutrophil Count 3.65 10^3/uL (1.2-6.7); Eosinophils % 2.4; HCT 25.5 % (40.0-50.0); Immature Grans % 0.3; Lymphocytes % 19.2; MCH 34.6 pg (27.0-33.0); MCHC 31.4 % (32.0-36.0); MCV 110.4 fL (80-95); Monocytes % 15.3; Neutrophils % 61.8; Nucleated RBC 0 %; Platelet Count 208 10^3/uL (130-400); RBC 2.31 10^6/uL (4.36-5.78); RDW 19.8 % (11.8-14.1); RDW-SD 77.8 fL
== END 2021-02-21 03:51 | disposition home or self-care (01) ==
LOC: LBO 03:51
PROVIDERS: Visit Provider Internal Medicine Hematology & Oncology
DX: D46.20 Refractory anemia with excess of blasts, unspecified (principal)
CPT/HCPCS: 36415; 85025

== ENCOUNTER 2021-02-28 10:10 | Outpatient (RCR) | payer MEDICARE, BC, SELFPAY ==
[2021-02-28 09:03] LABS: Abs Immature Grans 0.04 10^3/uL (0.0-0.06); Absolute Basophil Count 0.09 10^3/uL (0.0-0.2); Absolute Lymphocyte Count 1.19 10^3/uL (1.2-3.4); Absolute Monocyte Count 0.84 10^3/uL (0.1-0.8); Absolute Neutrophil Count 3.22 10^3/uL (1.2-6.7); Basophils % 1.6; Eosinophils % 3.6; HGB 7.5 g/dL (13.5-17.5); Immature Grans % 0.7; Lymphocytes % 21.3; MCH 34.4 pg (27.0-33.0); MCHC 31.3 % (32.0-36.0); MCV 110.1 fL (80-95); MPV 12.9 fL (8.0-11.0); Monocytes % 15.1; Neutrophils % 57.7; Nucleated RBC 0 %; Platelet Count 200 10^3/uL (130-400); RBC 2.18 10^6/uL (4.36-5.78); RDW 19.2 % (11.8-14.1); RDW-SD 74.4 fL; WBC 5.58 10^3/uL (4.4-10.8)
[2021-02-28 09:28] LABS: Ferritin 246 ng/mL (26-388)
[2021-02-28] MEDS: Normal Saline Flush 10 ML SYR IVP (11:00)
[2021-02-28 11:29] VITALS: BP 135/75; PULSE 71; RESP 19; TEMP 36.7; O2SAT 98
[2021-02-28 11:44] VITALS: BP 129/64; PULSE 71; RESP 19; TEMP 36.7; O2SAT 100
[2021-02-28 12:00] VITALS: BP 122/73; PULSE 69; RESP 19; TEMP 36.5; O2SAT 100
[2021-02-28 12:14] VITALS: BP 147/67; PULSE 62; RESP 19; TEMP 36.6; O2SAT 100
[2021-02-28 13:14] VITALS: BP 138/67; PULSE 68; RESP 19; TEMP 36.6; O2SAT 99
== END 2021-03-19 23:59 | disposition home or self-care (01) ==
LOC: INF 10:10
PROVIDERS: Visit Provider Internal Medicine Hematology & Oncology
DX: D46.20 Refractory anemia with excess of blasts, unspecified (principal); D46.9 Myelodysplastic syndrome, unspecified
CPT/HCPCS: 36415; 36430; 86850; 86900; 86901; 86920; 82728; 85025; P9016

== ENCOUNTER 2021-03-07 09:19 | Outpatient (CLI) | payer MEDICARE, BC, SELFPAY ==
[2021-03-07 09:21] LABS: Abs Immature Grans 0.03 10^3/uL (0.0-0.06); Absolute Basophil Count 0.08 10^3/uL (0.0-0.2); Absolute Eosinophil Count 0.13 10^3/uL (0.0-0.7); Absolute Lymphocyte Count 0.84 10^3/uL (1.2-3.4); Absolute Monocyte Count 0.73 10^3/uL (0.1-0.8); Absolute Neutrophil Count 2.97 10^3/uL (1.2-6.7); Basophils % 1.7; Eosinophils % 2.7; HCT 27.4 % (40.0-50.0); HGB 8.5 g/dL (13.5-17.5); Immature Grans % 0.6; Lymphocytes % 17.6; MCH 33.7 pg (27.0-33.0); MCV 108.7 fL (80-95); MPV 12.7 fL (8.0-11.0); Monocytes % 15.3; Neutrophils % 62.1; Nucleated RBC 0 %; Platelet Count 203 10^3/uL (130-400); RBC 2.52 10^6/uL (4.36-5.78); RDW 21.3 % (11.8-14.1); RDW-SD 81.8 fL; WBC 4.78 10^3/uL (4.4-10.8)
[2021-03-07 09:39] LABS: ALT 27 U/L (16-63); AST 69 U/L (15-37); Albumin 3.7 g/dL (3.4-5.0); Alkaline Phosphatase 40 U/L (46-116); Anion Gap 7.1 mmol/L (3-11); BUN 34 mg/dL (7-18); Bilirubin, Total 0.8 mg/dL (0.2-1.0); CO2 27.9 mmol/L (21.0-32.0); CREATININE 1.9 mg/dL (0.70-1.30); Calcium 8.2 mg/dL (8.5-10.1); Chloride 106 mmol/L (98-107); Estimated GFR 34.64 (mL/min/1.73m2); Glucose 188 mg/dL (74-106); Potassium 4.6 mmol/L (3.5-5.1); Sodium 141 mmol/L (136-145); Total Protein 6.4 g/dL (6.4-8.2)
[2021-03-07 09:42] LABS: Anisocytosis 3+; Basophilic Stippling Present; Diff Comment Diff Reviewed; Hypochromasia 2+; Macrocytosis 2+
[2021-03-07 09:43] LABS: Poikilocytes 2+; Polychromasia Present
== END 2021-03-07 09:20 | disposition home or self-care (01) ==
LOC: LBO 09:20
PROVIDERS: Visit Provider Internal Medicine Hematology & Oncology
DX: D46.20 Refractory anemia with excess of blasts, unspecified (principal); N18.30 Chronic kidney disease, stage 3 unspecified; D63.1 Anemia in chronic kidney disease
CPT/HCPCS: 36415; 80053; 85025

== ENCOUNTER 2021-03-14 09:13 | Outpatient (CLI) | payer MEDICARE, BC, SELFPAY ==
[2021-03-14 09:32] LABS: Abs Immature Grans 0.03 10^3/uL (0.0-0.06); Absolute Basophil Count 0.06 10^3/uL (0.0-0.2); Absolute Eosinophil Count 0.17 10^3/uL (0.0-0.7); Absolute Lymphocyte Count 1.29 10^3/uL (1.2-3.4); Absolute Monocyte Count 0.73 10^3/uL (0.1-0.8); Absolute Neutrophil Count 2.75 10^3/uL (1.2-6.7); Basophils % 1.2; Eosinophils % 3.4; HCT 27.2 % (40.0-50.0); HGB 8.4 g/dL (13.5-17.5); Immature Grans % 0.6; Lymphocytes % 25.6; MCH 33.6 pg (27.0-33.0); MCHC 30.9 % (32.0-36.0); MCV 108.8 fL (80-95); Monocytes % 14.5; Neutrophils % 54.7; Nucleated RBC 0 %; RDW 20.7 % (11.8-14.1); RDW-SD 80.2 fL; WBC 5.03 10^3/uL (4.4-10.8)
[2021-03-14 09:57] LABS: Ferritin 229 ng/mL (26-388)
[2021-03-14 10:09] LABS: Anisocytosis 2+; Basophilic Stippling Present; Diff Comment Diff Reviewed; Hypochromasia 2+; Macrocytosis 2+; Platelet Count 218 10^3/uL (130-400)
[2021-03-14 10:10] LABS: Poikilocytes 2+
== END 2021-03-14 09:14 | disposition home or self-care (01) ==
LOC: LBO 09:17
PROVIDERS: Visit Provider Internal Medicine Hematology & Oncology
DX: D46.20 Refractory anemia with excess of blasts, unspecified (principal)
CPT/HCPCS: 36415; 82728; 85025

== ENCOUNTER 2021-03-21 09:01 | Outpatient (CLI) | payer MEDICARE, BC, SELFPAY ==
[2021-03-21 09:26] LABS: Abs Immature Grans 0.03 10^3/uL (0.0-0.06); Absolute Basophil Count 0.06 10^3/uL (0.0-0.2); Absolute Eosinophil Count 0.12 10^3/uL (0.0-0.7); Absolute Lymphocyte Count 0.93 10^3/uL (1.2-3.4); Absolute Monocyte Count 0.67 10^3/uL (0.1-0.8); Absolute Neutrophil Count 2.52 10^3/uL (1.2-6.7); Basophils % 1.4; Eosinophils % 2.8; HCT 26.6 % (40.0-50.0); HGB 8.4 g/dL (13.5-17.5); Immature Grans % 0.7; Lymphocytes % 21.5; MCH 34.1 pg (27.0-33.0); MCHC 31.6 % (32.0-36.0); MCV 108.1 fL (80-95); Monocytes % 15.5; Neutrophils % 58.1; Nucleated RBC 0 %; RBC 2.46 10^6/uL (4.36-5.78); RDW 21.1 % (11.8-14.1); RDW-SD 80.1 fL; WBC 4.33 10^3/uL (4.4-10.8)
[2021-03-21 09:42] LABS: Anisocytosis 3+; Diff Comment Diff Reviewed; Macrocytosis 2+; Microcytosis 1+; Ovalocytes 2+; Platelet Count 220 10^3/uL (130-400); Polychromasia Present
[2021-03-21 09:43] LABS: Poikilocytes 2+
[2021-03-21 09:53] LABS: Ferritin 237 ng/mL (26-388)
== END 2021-03-21 09:02 | disposition home or self-care (01) ==
LOC: LBO 09:08
PROVIDERS: Visit Provider Internal Medicine Hematology & Oncology
DX: D46.20 Refractory anemia with excess of blasts, unspecified (principal)
CPT/HCPCS: 36415; 86900; 86901; 82728; 85025

== ENCOUNTER 2021-04-02 11:48 | Outpatient (CLI) | payer MEDICARE, BC, SELFPAY ==
[2021-04-02 09:59] LABS: Abs Immature Grans 0.01 10^3/uL (0.0-0.06); Absolute Basophil Count 0.04 10^3/uL (0.0-0.2); Absolute Lymphocyte Count 1.22 10^3/uL (1.2-3.4); Absolute Monocyte Count 0.68 10^3/uL (0.1-0.8); Absolute Neutrophil Count 2.23 10^3/uL (1.2-6.7); Basophils % 0.9; Eosinophils % 2.3; HCT 25.6 % (40.0-50.0); Immature Grans % 0.2; Lymphocytes % 28.5; MCH 33.8 pg (27.0-33.0); MCHC 31.3 % (32.0-36.0); MPV 12.8 fL (8.0-11.0); Monocytes % 15.9; Neutrophils % 52.2; Nucleated RBC 0 %; RBC 2.37 10^6/uL (4.36-5.78); RDW 20.2 % (11.8-14.1); WBC 4.28 10^3/uL (4.4-10.8)
[2021-04-02 10:23] LABS: Anisocytosis 2+; Basophilic Stippling 1+; Diff Comment Diff Reviewed; Macrocytosis 1+; Platelet Count 234 10^3/uL (130-400)
[2021-04-02 10:24] LABS: Ferritin 387 ng/mL (26-388); Poikilocytes 1+; Polychromasia Present
== END 2021-04-02 11:49 | disposition home or self-care (01) ==
LOC: LBO 11:49
PROVIDERS: Visit Provider Internal Medicine Hematology & Oncology
DX: D46.20 Refractory anemia with excess of blasts, unspecified (principal)
CPT/HCPCS: 36415; 86900; 86901; 82728; 85025

== ENCOUNTER 2021-04-11 01:48 | Outpatient (CLI) | payer MEDICARE, BC, SELFPAY | END 2021-04-11 01:49 | disposition home or self-care (01) | LOC: LBO 01:48 | PROVIDERS: Visit Provider Internal Medicine Hematology & Oncology | DX: D46.20 Refractory anemia with excess of blasts, unspecified (principal); N18.30 Chronic kidney disease, stage 3 unspecified; D63.1 Anemia in chronic kidney disease | CPT/HCPCS: 36415; 80053; 86850; 86900; 86901; 86920; 82728; 85025 ==

== ENCOUNTER 2021-04-12 05:29 | Outpatient (RCR) | payer MEDICARE, BC, SELFPAY ==
[2021-03-20 00:25] VITALS: BP 138/67; PULSE 68; RESP 19; TEMP 36.6
[2021-04-11 08:59] LABS: Abs Immature Grans 0.05 10^3/uL (0.0-0.06); Absolute Basophil Count 0.07 10^3/uL (0.0-0.2); Absolute Eosinophil Count 0.16 10^3/uL (0.0-0.7); Absolute Lymphocyte Count 1.08 10^3/uL (1.2-3.4); Absolute Monocyte Count 0.74 10^3/uL (0.1-0.8); Absolute Neutrophil Count 2.74 10^3/uL (1.2-6.7); Basophils % 1.4; Eosinophils % 3.3; HGB 7.3 g/dL (13.5-17.5); Lymphocytes % 22.3; MCH 34.6 pg (27.0-33.0); MCHC 31.7 % (32.0-36.0); Monocytes % 15.3; Neutrophils % 56.7; Nucleated RBC 0 %; Platelet Count 253 10^3/uL (130-400); RBC 2.11 10^6/uL (4.36-5.78); RDW 20.8 % (11.8-14.1); RDW-SD 78.5 fL; WBC 4.84 10^3/uL (4.4-10.8)
[2021-04-11 09:25] LABS: ALT 28 U/L (16-63); AST 61 U/L (15-37); Albumin 3.6 g/dL (3.4-5.0); Alkaline Phosphatase 44 U/L (46-116); Anion Gap 8.3 mmol/L (3-11); BUN 50 mg/dL (7-18); Bilirubin, Total 0.7 mg/dL (0.2-1.0); CO2 26.7 mmol/L (21.0-32.0); CREATININE 2.3 mg/dL (0.70-1.30); Calcium 8.2 mg/dL (8.5-10.1); Chloride 107 mmol/L (98-107); Estimated GFR 27.78 (mL/min/1.73m2); Ferritin 258 ng/mL (26-388); Glucose 173 mg/dL (74-106); Potassium 4.3 mmol/L (3.5-5.1); Sodium 142 mmol/L (136-145); Total Protein 6.7 g/dL (6.4-8.2)
[2021-04-11 09:26] LABS: Anisocytosis 2+; Basophilic Stippling Present; Diff Comment Diff Reviewed
[2021-04-11 09:27] LABS: Macrocytosis 1+; Poikilocytes 1+; Polychromasia Present
[2021-04-12 09:25] VITALS: BP 132/68; PULSE 72; RESP 17; TEMP 36.9; O2SAT 99
[2021-04-12 09:40] VITALS: BP 157/67; PULSE 71; RESP 16; TEMP 37.1; O2SAT 99
[2021-04-12 10:01] VITALS: BP 169/69; PULSE 85; RESP 16; TEMP 37.1; O2SAT 100
[2021-04-12 10:30] VITALS: BP 130/67; PULSE 68; RESP 16; TEMP 36.7; O2SAT 100
[2021-04-12 11:10] VITALS: BP 134/68; PULSE 66; RESP 16; TEMP 37.1; O2SAT 99
[2021-04-12] MEDS: Normal Saline Flush 10 ML SYR IVP (11:48)
== END 2021-04-18 23:59 | disposition home or self-care (01) ==
LOC: INF 05:29
PROVIDERS: Visit Provider Internal Medicine Hematology & Oncology
DX: D46.9 Myelodysplastic syndrome, unspecified (principal)
CPT/HCPCS: 36415; 36430; 80053; 86850; 86900; 86901; 86920; 82728; 85025; P9016

== ENCOUNTER 2021-04-18 03:56 | Outpatient (CLI) | payer MEDICARE, BC, SELFPAY ==
[2021-04-18 09:04] LABS: Abs Immature Grans 0.05 10^3/uL (0.0-0.06); Absolute Basophil Count 0.07 10^3/uL (0.0-0.2); Absolute Eosinophil Count 0.15 10^3/uL (0.0-0.7); Absolute Lymphocyte Count 1.16 10^3/uL (1.2-3.4); Absolute Neutrophil Count 3.47 10^3/uL (1.2-6.7); Basophils % 1.2; Eosinophils % 2.6; HCT 27.8 % (40.0-50.0); HGB 8.7 g/dL (13.5-17.5); Immature Grans % 0.9; MCH 33.2 pg (27.0-33.0); MCHC 31.3 % (32.0-36.0); MCV 106.1 fL (80-95); MPV 12.9 fL (8.0-11.0); Monocytes % 15.5; Neutrophils % 59.8; Nucleated RBC 0 %; RBC 2.62 10^6/uL (4.36-5.78); RDW 20.7 % (11.8-14.1)
[2021-04-18 09:14] LABS: Anisocytosis 2+; Basophilic Stippling Present; Diff Comment Diff Reviewed; Macrocytosis 2+; Ovalocytes 2+; Platelet Count 255 10^3/uL (130-400)
[2021-04-18 09:15] LABS: Poikilocytes 1+
[2021-04-18 09:30] LABS: ALT 37 U/L (16-63); AST 97 U/L (15-37); Albumin 3.9 g/dL (3.4-5.0); Alkaline Phosphatase 47 U/L (46-116); Anion Gap 10.4 mmol/L (3-11); BUN 45 mg/dL (7-18); Bilirubin, Total 1.1 mg/dL (0.2-1.0); CO2 26.6 mmol/L (21.0-32.0); CREATININE 2.1 mg/dL (0.70-1.30); Calcium 8.7 mg/dL (8.5-10.1); Chloride 103 mmol/L (98-107); Estimated GFR 30.86 (mL/min/1.73m2); Ferritin 324 ng/mL (26-388); Glucose 166 mg/dL (74-106); Potassium 4.6 mmol/L (3.5-5.1); Sodium 140 mmol/L (136-145); Total Protein 7.2 g/dL (6.4-8.2)
== END 2021-04-18 03:57 | disposition home or self-care (01) ==
LOC: LBO 03:56
PROVIDERS: Visit Provider Internal Medicine Hematology & Oncology
DX: D46.20 Refractory anemia with excess of blasts, unspecified (principal); N18.30 Chronic kidney disease, stage 3 unspecified; D63.1 Anemia in chronic kidney disease
CPT/HCPCS: 36415; 80053; 86900; 86901; 82728; 85025

== ENCOUNTER 2021-04-25 03:12 | Outpatient (CLI) | payer MEDICARE, BC, SELFPAY ==
[2021-04-25 08:47] LABS: Abs Immature Grans 0.04 10^3/uL (0.0-0.06); Absolute Basophil Count 0.05 10^3/uL (0.0-0.2); Absolute Eosinophil Count 0.15 10^3/uL (0.0-0.7); Absolute Monocyte Count 0.68 10^3/uL (0.1-0.8); Absolute Neutrophil Count 2.54 10^3/uL (1.2-6.7); Basophils % 1.1; Eosinophils % 3.4; HCT 26.9 % (40.0-50.0); HGB 8.4 g/dL (13.5-17.5); Immature Grans % 0.9; Lymphocytes % 22.4; MCHC 31.2 % (32.0-36.0); MCV 108.9 fL (80-95); MPV 13.2 fL (8.0-11.0); Monocytes % 15.2; Nucleated RBC 0 %; RBC 2.47 10^6/uL (4.36-5.78); RDW 21.3 % (11.8-14.1); WBC 4.46 10^3/uL (4.4-10.8)
[2021-04-25 09:05] LABS: ALT 36 U/L (16-63); AST 100 U/L (15-37); Albumin 3.8 g/dL (3.4-5.0); Alkaline Phosphatase 43 U/L (46-116); Anion Gap 6.8 mmol/L (3-11); BUN 49 mg/dL (7-18); Bilirubin, Total 1.2 mg/dL (0.2-1.0); CO2 28.2 mmol/L (21.0-32.0); CREATININE 1.9 mg/dL (0.70-1.30); Calcium 8.4 mg/dL (8.5-10.1); Chloride 105 mmol/L (98-107); Estimated GFR 34.64 (mL/min/1.73m2); Ferritin 303 ng/mL (26-388); Glucose 218 mg/dL (74-106); Potassium 4.2 mmol/L (3.5-5.1); Sodium 140 mmol/L (136-145); Total Protein 6.7 g/dL (6.4-8.2)
[2021-04-25 09:12] LABS: Anisocytosis 2+; Diff Comment RBC Morph Reviewed; Platelet Count 240 10^3/uL (130-400)
[2021-04-25 09:13] LABS: Basophilic Stippling Present; Macrocytosis 2+; Poikilocytes 1+; Polychromasia Present
== END 2021-04-25 03:13 | disposition home or self-care (01) ==
LOC: LBO 03:12
PROVIDERS: Visit Provider Internal Medicine Hematology & Oncology
DX: D46.20 Refractory anemia with excess of blasts, unspecified (principal)
CPT/HCPCS: 36415; 80053; 86900; 86901; 82728; 85025

== ENCOUNTER 2021-05-02 02:42 | Outpatient (CLI) | payer MEDICARE, BC, SELFPAY | END 2021-05-02 02:43 | disposition home or self-care (01) | LOC: LBO 02:42 | PROVIDERS: Visit Provider Internal Medicine Hematology & Oncology | DX: D46.20 Refractory anemia with excess of blasts, unspecified (principal) | CPT/HCPCS: 36415; 80053; 86850; 86900; 86901; 86920; 82728; 85025 ==

== ENCOUNTER 2021-05-03 00:58 | Outpatient (RCR) | payer MEDICARE, BC, SELFPAY ==
[2021-04-19 00:13] VITALS: BP 134/68; PULSE 66; RESP 16; TEMP 37.1
[2021-05-02 08:47] LABS: Abs Immature Grans 0.02 10^3/uL (0.0-0.06); Absolute Eosinophil Count 0.15 10^3/uL (0.0-0.7); Absolute Lymphocyte Count 1.21 10^3/uL (1.2-3.4); Absolute Monocyte Count 0.83 10^3/uL (0.1-0.8); Absolute Neutrophil Count 2.89 10^3/uL (1.2-6.7); Basophils % 1.9; Eosinophils % 2.9; HCT 25.5 % (40.0-50.0); HGB 7.9 g/dL (13.5-17.5); Immature Grans % 0.4; Lymphocytes % 23.3; MCH 33.9 pg (27.0-33.0); MCV 109.4 fL (80-95); MPV 12.3 fL (8.0-11.0); Neutrophils % 55.5; Nucleated RBC 0 %; Platelet Count 213 10^3/uL (130-400); RBC 2.33 10^6/uL (4.36-5.78); RDW-SD 81.2 fL
[2021-05-02 09:03] LABS: Anisocytosis 2+; Diff Comment RBC Morph Reviewed; Macrocytosis 2+
[2021-05-02 09:04] LABS: Hypochromasia 1+; Poikilocytes 2+
[2021-05-02 09:16] LABS: ALT 33 U/L (16-63); AST 100 U/L (15-37); Albumin 3.8 g/dL (3.4-5.0); Alkaline Phosphatase 43 U/L (46-116); Anion Gap 10.5 mmol/L (3-11); BUN 41 mg/dL (7-18); Bilirubin, Total 1.1 mg/dL (0.2-1.0); CO2 25.5 mmol/L (21.0-32.0); Calcium 8.4 mg/dL (8.5-10.1); Chloride 103 mmol/L (98-107); Estimated GFR 32.65 (mL/min/1.73m2); Ferritin 319 ng/mL (26-388); Glucose 223 mg/dL (74-106); Potassium 4.3 mmol/L (3.5-5.1); Sodium 139 mmol/L (136-145); Total Protein 6.8 g/dL (6.4-8.2)
[2021-05-03 08:23] VITALS: BP 146/73; PULSE 74; RESP 20; TEMP 37; O2SAT 100
[2021-05-03 08:38] VITALS: BP 139/76; PULSE 68; RESP 18; TEMP 36.8; O2SAT 100
[2021-05-03 09:08] VITALS: BP 151/81; PULSE 75; RESP 18; TEMP 37.4; O2SAT 100
[2021-05-03 09:40] VITALS: BP 138/75; PULSE 63; RESP 18; TEMP 37.4; O2SAT 100
[2021-05-03 10:08] VITALS: BP 150/76; PULSE 68; RESP 18; TEMP 36.4; O2SAT 100
[2021-05-03] MEDS: Normal Saline Flush 10 ML SYR IVP (14:15)
== END 2021-05-19 23:59 | disposition home or self-care (01) ==
LOC: INF 00:58
PROVIDERS: Visit Provider Internal Medicine Hematology & Oncology
DX: D46.9 Myelodysplastic syndrome, unspecified (principal)
CPT/HCPCS: 36415; 36430; 80053; 86850; 86900; 86901; 86920; 82728; 85025; P9016

== ENCOUNTER 2021-05-09 02:41 | Outpatient (CLI) | payer MEDICARE, BC, SELFPAY ==
[2021-05-09 09:58] LABS: Abs Immature Grans 0.01 10^3/uL (0.0-0.06); Absolute Basophil Count 0.07 10^3/uL (0.0-0.2); Absolute Eosinophil Count 0.11 10^3/uL (0.0-0.7); Absolute Monocyte Count 0.52 10^3/uL (0.1-0.8); Absolute Neutrophil Count 2.04 10^3/uL (1.2-6.7); Basophils % 1.9; Eosinophils % 2.9; HCT 29.3 % (40.0-50.0); HGB 9.4 g/dL (13.5-17.5); Immature Grans % 0.3; Lymphocytes % 26.7; MCH 33.9 pg (27.0-33.0); MCHC 32.1 % (32.0-36.0); MCV 105.8 fL (80-95); MPV 12.6 fL (8.0-11.0); Monocytes % 13.9; Neutrophils % 54.3; Nucleated RBC 0 %; Platelet Count 218 10^3/uL (130-400); RBC 2.77 10^6/uL (4.36-5.78); RDW 20.4 % (11.8-14.1); RDW-SD 75.7 fL; WBC 3.75 10^3/uL (4.4-10.8)
[2021-05-09 10:23] LABS: Anisocytosis 2+; Diff Comment RBC Morph Reviewed; Macrocytosis 2+
[2021-05-09 10:28] LABS: ALT 33 U/L (16-63); AST 89 U/L (15-37); Albumin 3.9 g/dL (3.4-5.0); Alkaline Phosphatase 45 U/L (46-116); Anion Gap 7.3 mmol/L (3-11); BUN 44 mg/dL (7-18); CO2 28.7 mmol/L (21.0-32.0); CREATININE 2.3 mg/dL (0.70-1.30); Calcium 8.6 mg/dL (8.5-10.1); Chloride 104 mmol/L (98-107); Estimated GFR 27.78 (mL/min/1.73m2); Ferritin 324 ng/mL (26-388); Glucose 198 mg/dL (74-106); Potassium 4.6 mmol/L (3.5-5.1); Sodium 140 mmol/L (136-145)
== END 2021-05-09 02:42 | disposition home or self-care (01) ==
LOC: LBO 02:41
PROVIDERS: Visit Provider Internal Medicine Hematology & Oncology
DX: D46.20 Refractory anemia with excess of blasts, unspecified (principal); N18.30 Chronic kidney disease, stage 3 unspecified; D63.1 Anemia in chronic kidney disease
CPT/HCPCS: 36415; 80053; 86900; 86901; 82728; 85025

== ENCOUNTER 2021-11-28 01:57 | Outpatient (CLI) | payer MEDICARE, BC, SELFPAY | END 2021-11-28 01:58 | disposition home or self-care (01) | LOC: LBO 01:59 | PROVIDERS: Visit Provider Internal Medicine Hematology & Oncology | CPT/HCPCS: 36415; 80053; 86850; 86900; 86901; 86920; 85025; P9016 ==

== ENCOUNTER 2021-12-12 08:30 | Outpatient (RCR) | payer MEDICARE, BC, SELFPAY ==
[2021-11-28 08:43] LABS: Abs Immature Grans 0.06 10^3/uL (0.0-0.06); Absolute Eosinophil Count 0.25 10^3/uL (0.0-0.7); Absolute Lymphocyte Count 1.19 10^3/uL (1.2-3.4); Absolute Monocyte Count 0.93 10^3/uL (0.1-0.8); Absolute Neutrophil Count 2.36 10^3/uL (1.2-6.7); Eosinophils % 5.1; HCT 23.5 % (40.0-50.0); HGB 7.3 g/dL (13.5-17.5); Immature Grans % 1.2; Lymphocytes % 24.3; MCH 32.3 pg (27.0-33.0); MCHC 31.1 % (32.0-36.0); MCV 104 fL (80-95); MPV 12.5 fL (8.0-11.0); Neutrophils % 48.4; Platelet Count 316 10^3/uL (130-400); RBC 2.26 10^6/uL (4.36-5.78); RDW 23.2 % (11.8-14.1); RDW-SD 77.2 fL; WBC 4.89 10^3/uL (4.4-10.8)
[2021-11-28 09:01] LABS: Anisocytosis 2+; Diff Comment RBC Morph Reviewed; Poikilocytes 2+
[2021-11-28 09:08] LABS: ALT 22 U/L (16-63); AST 16 U/L (15-37); Albumin 3.9 g/dL (3.4-5.0); Alkaline Phosphatase 45 U/L (46-116); Anion Gap 11.1 mmol/L (3-11); BUN 41 mg/dL (7-18); Bilirubin, Total 0.9 mg/dL (0.2-1.0); CO2 24.9 mmol/L (21.0-32.0); CREATININE 2.1 mg/dL (0.70-1.30); Calcium 8.4 mg/dL (8.5-10.1); Chloride 105 mmol/L (98-107); Estimated GFR 30.78 (mL/min/1.73m2); Glucose 156 mg/dL (74-106); Potassium 4.2 mmol/L (3.5-5.1); Sodium 141 mmol/L (136-145)
[2021-11-28 12:13] VITALS: BP 156/61; PULSE 71; RESP 16; TEMP 36; O2SAT 100
[2021-11-28 12:28] VITALS: BP 155/70; PULSE 88; RESP 17; TEMP 35.9; O2SAT 100
[2021-11-28 12:58] VITALS: BP 135/56; PULSE 79; RESP 16; TEMP 36.4; O2SAT 100
[2021-11-28 14:25] VITALS: BP 156/62; PULSE 76; RESP 17; TEMP 35.7; O2SAT 100
[2021-11-28] MEDS: Normal Saline Flush 10 ML SYR IVP (14:47)
[2021-12-12 07:25] LABS: Abs Immature Grans 0.03 10^3/uL (0.0-0.06); Absolute Lymphocyte Count 1.23 10^3/uL (1.2-3.4); Absolute Monocyte Count 0.92 10^3/uL (0.1-0.8); Absolute Neutrophil Count 2.02 10^3/uL (1.2-6.7); Basophils % 2.2; Eosinophils % 4.4; HCT 24.9 % (40.0-50.0); HGB 7.8 g/dL (13.5-17.5); Immature Grans % 0.7; Lymphocytes % 27.3; MCH 33.2 pg (27.0-33.0); MCHC 31.3 % (32.0-36.0); MCV 106 fL (80-95); MPV 11.9 fL (8.0-11.0); Monocytes % 20.4; Platelet Count 253 10^3/uL (130-400); RBC 2.35 10^6/uL (4.36-5.78); RDW 22.8 % (11.8-14.1); RDW-SD 80.2 fL
[2021-12-12 07:40] LABS: ALT 18 U/L (16-63); AST 25 U/L (15-37); Alkaline Phosphatase 44 U/L (46-116); Anion Gap 7.7 mmol/L (3-11); BUN 42 mg/dL (7-18); Bilirubin, Total 1.1 mg/dL (0.2-1.0); CO2 26.3 mmol/L (21.0-32.0); Calcium 8.5 mg/dL (8.5-10.1); Chloride 107 mmol/L (98-107); Estimated GFR 32.56 (mL/min/1.73m2); Glucose 143 mg/dL (74-106); Potassium 4.3 mmol/L (3.5-5.1); Sodium 141 mmol/L (136-145)
[2021-12-12 07:43] LABS: Anisocytosis 2+; Basophilic Stippling Present; Diff Comment RBC Morph Reviewed; Macrocytosis 2+; Polychromasia Present
[2021-12-12 07:44] LABS: Poikilocytes 1+
[2021-12-12 10:41] VITALS: BP 167/84; PULSE 65; RESP 20; TEMP 36.5; O2SAT 95
[2021-12-12] MEDS: Normal Saline Flush 10 ML SYR IVP (10:47)
[2021-12-12 10:56] VITALS: BP 127/62; PULSE 66; RESP 20; TEMP 36.8; O2SAT 98
[2021-12-12 11:26] VITALS: BP 125/78; PULSE 67; RESP 20; TEMP 36.9; O2SAT 100
[2021-12-12 12:26] VITALS: BP 138/76; PULSE 71; RESP 20; TEMP 37; O2SAT 99
[2021-12-12 12:42] VITALS: BP 128/74; PULSE 70; RESP 20; TEMP 36.9; O2SAT 99
== END 2021-12-17 23:59 | disposition home or self-care (01) ==
LOC: INF 08:30
PROVIDERS: Visit Provider Internal Medicine Hematology & Oncology
DX: D75.81 Myelofibrosis (principal); D59.5 Paroxysmal nocturnal hemoglobinuria [Marchiafava-Micheli]
CPT/HCPCS: 36415; 36430; 80053; 86850; 86900; 86901; 86920; 85025; P9016

== ENCOUNTER 2021-12-26 02:22 | Outpatient (CLI) | payer MEDICARE, BC, SELFPAY ==
[2021-12-26 08:13] LABS: Abs Immature Grans 0.04 10^3/uL (0.0-0.06); Absolute Eosinophil Count 0.31 10^3/uL (0.0-0.7); Absolute Lymphocyte Count 1.19 10^3/uL (1.2-3.4); Absolute Monocyte Count 0.97 10^3/uL (0.1-0.8); Absolute Neutrophil Count 2.35 10^3/uL (1.2-6.7); Eosinophils % 6.3; HCT 25.2 % (40.0-50.0); HGB 8.1 g/dL (13.5-17.5); Immature Grans % 0.8; MCH 33.1 pg (27.0-33.0); MCHC 32.1 % (32.0-36.0); MCV 103 fL (80-95); MPV 12.1 fL (8.0-11.0); Monocytes % 19.6; Neutrophils % 47.3; Platelet Count 274 10^3/uL (130-400); RBC 2.45 10^6/uL (4.36-5.78); RDW-SD 73.9 fL; WBC 4.96 10^3/uL (4.4-10.8)
[2021-12-26 08:28] LABS: Anisocytosis 2+; Diff Comment RBC Morph Reviewed
[2021-12-26 08:36] LABS: ALT 18 U/L (16-63); AST 16 U/L (15-37); Albumin 3.8 g/dL (3.4-5.0); Alkaline Phosphatase 48 U/L (46-116); Anion Gap 10.8 mmol/L (3-11); BUN 51 mg/dL (7-18); CO2 24.2 mmol/L (21.0-32.0); Calcium 8.3 mg/dL (8.5-10.1); Chloride 104 mmol/L (98-107); Estimated GFR 32.56 (mL/min/1.73m2); Glucose 179 mg/dL (74-106); Potassium 4.3 mmol/L (3.5-5.1); Sodium 139 mmol/L (136-145); Total Protein 6.8 g/dL (6.4-8.2)
[2021-12-27 09:50] LABS: Haptoglobin <7 mg/dL (32-197)
== END 2021-12-26 02:23 | disposition home or self-care (01) ==
PROVIDERS: Visit Provider Internal Medicine Hematology & Oncology
DX: D75.81 Myelofibrosis (principal); D59.5 Paroxysmal nocturnal hemoglobinuria [Marchiafava-Micheli]
CPT/HCPCS: 36415; 80053; 86900; 86901; 83010; 85025; 85045

== ENCOUNTER 2022-01-02 09:46 | Outpatient (RCR) | payer MEDICARE, BC, SELFPAY ==
[2021-12-18 00:17] VITALS: BP 128/74; PULSE 70; RESP 20; TEMP 36.9
[2022-01-02 09:31] LABS: Abs Immature Grans 0.04 10^3/uL (0.0-0.06); Absolute Eosinophil Count 0.32 10^3/uL (0.0-0.7); Absolute Lymphocyte Count 1.36 10^3/uL (1.2-3.4); Absolute Monocyte Count 1.09 10^3/uL (0.1-0.8); Absolute Neutrophil Count 3.12 10^3/uL (1.2-6.7); Basophils % 1.7; Eosinophils % 5.3; HCT 24.3 % (40.0-50.0); HGB 7.9 g/dL (13.5-17.5); Immature Grans % 0.7; Lymphocytes % 22.6; MCH 33.1 pg (27.0-33.0); MCHC 32.5 % (32.0-36.0); MCV 102 fL (80-95); MPV 12.1 fL (8.0-11.0); Monocytes % 18.1; Neutrophils % 51.6; RBC 2.39 10^6/uL (4.36-5.78); RDW 22.2 % (11.8-14.1); RDW-SD 72.1 fL; WBC 6.03 10^3/uL (4.4-10.8)
[2022-01-02 09:51] LABS: ALT 22 U/L (16-63); AST 23 U/L (15-37); Albumin 4.2 g/dL (3.4-5.0); Alkaline Phosphatase 52 U/L (46-116); Anion Gap 10.7 mmol/L (3-11); BUN 49 mg/dL (7-18); Bilirubin, Total 1.2 mg/dL (0.2-1.0); CO2 25.3 mmol/L (21.0-32.0); Calcium 8.9 mg/dL (8.5-10.1); Chloride 104 mmol/L (98-107); Estimated GFR 32.56 (mL/min/1.73m2); Glucose 157 mg/dL (74-106); Potassium 4.9 mmol/L (3.5-5.1); Sodium 140 mmol/L (136-145); Total Protein 7.5 g/dL (6.4-8.2)
[2022-01-02 10:05] LABS: Anisocytosis 2+; Diff Comment Diff Reviewed; Platelet Count 287 10^3/uL (130-400)
[2022-01-02 10:06] LABS: Hypochromasia 2+; Macrocytosis 2+; Poikilocytes 2+; Polychromasia Present
[2022-01-02 10:53] VITALS: BP 146/77; PULSE 66; RESP 17; TEMP 36.5; O2SAT 99
[2022-01-02 11:08] VITALS: BP 148/74; PULSE 76; RESP 17; TEMP 36.7; O2SAT 100
[2022-01-02 11:23] VITALS: BP 133/78; PULSE 81; RESP 17; TEMP 36.7; O2SAT 100
[2022-01-02 11:55] VITALS: BP 115/68; PULSE 69; RESP 17; TEMP 36.7; O2SAT 100
[2022-01-02 12:55] VITALS: BP 115/68; PULSE 71; RESP 17; TEMP 36.5; O2SAT 100
[2022-01-02] MEDS: Normal Saline Flush 10 ML SYR IVP (13:08)
== END 2022-01-16 23:59 | disposition home or self-care (01) ==
LOC: INF 09:46
PROVIDERS: Visit Provider Internal Medicine Hematology & Oncology
DX: D75.81 Myelofibrosis (principal); D59.5 Paroxysmal nocturnal hemoglobinuria [Marchiafava-Micheli]
CPT/HCPCS: 36415; 36430; 80053; 86850; 86900; 86901; 86920; 85025; 86644; P9016

== ENCOUNTER 2022-01-09 03:28 | Outpatient (CLI) | payer MEDICARE, BC, SELFPAY ==
[2022-01-09 08:35] LABS: Abs Immature Grans 0.03 10^3/uL (0.0-0.06); Absolute Basophil Count 0.08 10^3/uL (0.0-0.2); Absolute Lymphocyte Count 1.07 10^3/uL (1.2-3.4); Absolute Monocyte Count 0.79 10^3/uL (0.1-0.8); Absolute Neutrophil Count 2.43 10^3/uL (1.2-6.7); Basophils % 1.7; Eosinophils % 4.3; HCT 25.7 % (40.0-50.0); HGB 8.4 g/dL (13.5-17.5); Immature Grans % 0.7; Lymphocytes % 23.3; MCH 32.8 pg (27.0-33.0); MCHC 32.7 % (32.0-36.0); MCV 100 fL (80-95); MPV 12.2 fL (8.0-11.0); Monocytes % 17.2; Neutrophils % 52.8; Platelet Count 289 10^3/uL (130-400); RBC 2.56 10^6/uL (4.36-5.78); RDW 22.4 % (11.8-14.1); RDW-SD 71.6 fL
[2022-01-09 08:59] LABS: ALT 18 U/L (16-63); AST 26 U/L (15-37); Alkaline Phosphatase 44 U/L (46-116); Anion Gap 9.5 mmol/L (3-11); BUN 45 mg/dL (7-18); Bilirubin, Total 1.1 mg/dL (0.2-1.0); CO2 25.5 mmol/L (21.0-32.0); CREATININE 2.1 mg/dL (0.70-1.30); Calcium 8.6 mg/dL (8.5-10.1); Chloride 102 mmol/L (98-107); Estimated GFR 30.78 (mL/min/1.73m2); Glucose 140 mg/dL (74-106); Potassium 4.5 mmol/L (3.5-5.1); Sodium 137 mmol/L (136-145)
[2022-01-09 09:08] LABS: Anisocytosis 2+; Diff Comment RBC Morph Reviewed
== END 2022-01-09 03:29 | disposition home or self-care (01) ==
LOC: LBO 03:28
PROVIDERS: Visit Provider Internal Medicine Hematology & Oncology
DX: D75.81 Myelofibrosis (principal); D59.5 Paroxysmal nocturnal hemoglobinuria [Marchiafava-Micheli]
CPT/HCPCS: 36415; 80053; 86900; 86901; 85025

== ENCOUNTER 2022-01-24 01:21 | Outpatient (RCR) | payer MEDICARE, BC, SELFPAY ==
[2022-01-23 09:36] LABS: Abs Immature Grans 0.02 10^3/uL (0.0-0.06); Absolute Basophil Count 0.09 10^3/uL (0.0-0.2); Absolute Eosinophil Count 0.19 10^3/uL (0.0-0.7); Absolute Lymphocyte Count 1.16 10^3/uL (1.2-3.4); Absolute Monocyte Count 0.87 10^3/uL (0.1-0.8); Absolute Neutrophil Count 2.41 10^3/uL (1.2-6.7); Basophils % 1.9; HCT 22.1 % (40.0-50.0); Immature Grans % 0.4; Lymphocytes % 24.5; MCH 33.2 pg (27.0-33.0); MCHC 31.7 % (32.0-36.0); MCV 105 fL (80-95); Monocytes % 18.4; Neutrophils % 50.8; Platelet Count 295 10^3/uL (130-400); RBC 2.11 10^6/uL (4.36-5.78); RDW 23.5 % (11.8-14.1); RDW-SD 78.3 fL; WBC 4.74 10^3/uL (4.4-10.8)
[2022-01-23 09:51] LABS: ALT 20 U/L (16-63); AST 27 U/L (15-37); Alkaline Phosphatase 44 U/L (46-116); Anion Gap 8.3 mmol/L (3-11); BUN 47 mg/dL (7-18); Bilirubin, Total 1.2 mg/dL (0.2-1.0); CO2 24.7 mmol/L (21.0-32.0); Calcium 8.6 mg/dL (8.5-10.1); Chloride 104 mmol/L (98-107); Estimated GFR 32.56 (mL/min/1.73m2); Glucose 147 mg/dL (74-106); Potassium 4.3 mmol/L (3.5-5.1); Sodium 137 mmol/L (136-145)
[2022-01-23 09:58] LABS: Anisocytosis 1+; Basophilic Stippling Present; Polychromasia Present
[2022-01-24] VITALS (10 sets, daily range): BP systolic 126–172; BP diastolic 59–81; PULSE 67–82; RESP 18; TEMP 36.4–36.8; O2SAT 100
[2022-01-24] MEDS: Normal Saline Flush 10 ML SYR IVP (08:11)
== END 2022-02-16 23:59 | disposition home or self-care (01) ==
LOC: INF 01:21
PROVIDERS: Visit Provider Internal Medicine Hematology & Oncology
DX: D59.5 Paroxysmal nocturnal hemoglobinuria [Marchiafava-Micheli] (principal); D75.81 Myelofibrosis
CPT/HCPCS: 36415; 36430; 80053; 86850; 86900; 86901; 86920; 85025; P9016

== ENCOUNTER 2022-02-06 11:15 | Outpatient (CLI) | payer MEDICARE, BC, SELFPAY ==
[2022-02-06 09:01] LABS: Abs Immature Grans 0.04 10^3/uL (0.0-0.06); Absolute Basophil Count 0.11 10^3/uL (0.0-0.2); Absolute Eosinophil Count 0.15 10^3/uL (0.0-0.7); Absolute Lymphocyte Count 1.33 10^3/uL (1.2-3.4); Basophils % 2.1; Eosinophils % 2.9; HCT 27.7 % (40.0-50.0); HGB 8.8 g/dL (13.5-17.5); Immature Grans % 0.8; Lymphocytes % 25.9; MCH 32.4 pg (27.0-33.0); MCHC 31.8 % (32.0-36.0); MCV 102 fL (80-95); MPV 12.2 fL (8.0-11.0); Monocytes % 17.5; Neutrophils % 50.8; Platelet Count 261 10^3/uL (130-400); RBC 2.72 10^6/uL (4.36-5.78); RDW 21.2 % (11.8-14.1); RDW-SD 67.3 fL; WBC 5.13 10^3/uL (4.4-10.8)
[2022-02-06 09:18] LABS: ALT 16 U/L (16-63); AST 22 U/L (15-37); Albumin 3.9 g/dL (3.4-5.0); Alkaline Phosphatase 42 U/L (46-116); Anion Gap 8.5 mmol/L (3-11); BUN 48 mg/dL (7-18); Bilirubin, Total 1.1 mg/dL (0.2-1.0); CO2 25.5 mmol/L (21.0-32.0); Calcium 8.4 mg/dL (8.5-10.1); Chloride 104 mmol/L (98-107); Estimated GFR 32.56 (mL/min/1.73m2); Glucose 157 mg/dL (74-106); Potassium 4.4 mmol/L (3.5-5.1); Sodium 138 mmol/L (136-145); Total Protein 6.8 g/dL (6.4-8.2)
== END 2022-02-06 11:16 | disposition home or self-care (01) ==
LOC: LBO 11:16
PROVIDERS: Visit Provider Internal Medicine Hematology & Oncology
DX: D75.81 Myelofibrosis (principal); D59.5 Paroxysmal nocturnal hemoglobinuria [Marchiafava-Micheli]
CPT/HCPCS: 36415; 80053; 86900; 86901; 85025

== ENCOUNTER 2022-02-20 14:44 | Outpatient (CLI) | payer MEDICARE, BC, SELFPAY ==
[2022-02-20 08:25] LABS: Absolute Basophil Count 0.13 10^3/uL (0.0-0.2); Absolute Eosinophil Count 0.28 10^3/uL (0.0-0.7); Absolute Lymphocyte Count 1.53 10^3/uL (1.2-3.4); Absolute Monocyte Count 1.33 10^3/uL (0.1-0.8); Basophils % 1.7; Eosinophils % 3.6; HCT 25.6 % (40.0-50.0); HGB 8.2 g/dL (13.5-17.5); Immature Grans % 1.3; Lymphocytes % 19.4; MCH 32.9 pg (27.0-33.0); MCV 103 fL (80-95); MPV 11.9 fL (8.0-11.0); Monocytes % 16.9; Neutrophils % 57.1; Platelet Count 324 10^3/uL (130-400); RBC 2.49 10^6/uL (4.36-5.78); RDW 22.4 % (11.8-14.1); RDW-SD 71.6 fL; WBC 7.87 10^3/uL (4.4-10.8)
[2022-02-20 09:03] LABS: ALT 25 U/L (16-63); AST 25 U/L (15-37); Albumin 4.1 g/dL (3.4-5.0); Alkaline Phosphatase 48 U/L (46-116); Anion Gap 10.1 mmol/L (3-11); BUN 54 mg/dL (7-18); CO2 23.9 mmol/L (21.0-32.0); Calcium 8.5 mg/dL (8.5-10.1); Chloride 102 mmol/L (98-107); Estimated GFR 32.56 (mL/min/1.73m2); Glucose 135 mg/dL (74-106); Potassium 4.2 mmol/L (3.5-5.1); Sodium 136 mmol/L (136-145); Total Protein 7.5 g/dL (6.4-8.2)
== END 2022-02-20 14:45 | disposition home or self-care (01) ==
LOC: LBO 14:45
PROVIDERS: Visit Provider Internal Medicine Hematology & Oncology
DX: D75.81 Myelofibrosis (principal); D59.5 Paroxysmal nocturnal hemoglobinuria [Marchiafava-Micheli]
CPT/HCPCS: 36415; 80053; 86900; 86901; 85025

== ENCOUNTER 2022-02-27 01:21 | Outpatient (RCR) | payer MEDICARE, BC, SELFPAY ==
[2022-02-17 00:05] VITALS: BP 115/68; PULSE 71; RESP 17; TEMP 36.5
[2022-02-27 09:36] LABS: Abs Immature Grans 0.05 10^3/uL (0.0-0.06); Absolute Basophil Count 0.07 10^3/uL (0.0-0.2); Absolute Eosinophil Count 0.16 10^3/uL (0.0-0.7); Absolute Monocyte Count 0.99 10^3/uL (0.1-0.8); Absolute Neutrophil Count 2.94 10^3/uL (1.2-6.7); Basophils % 1.3; HCT 22.4 % (40.0-50.0); HGB 7.1 g/dL (13.5-17.5); Immature Grans % 0.9; Lymphocytes % 22.2; MCH 33.3 pg (27.0-33.0); MCHC 31.7 % (32.0-36.0); MCV 105 fL (80-95); MPV 12.5 fL (8.0-11.0); Monocytes % 18.3; Neutrophils % 54.3; Platelet Count 284 10^3/uL (130-400); RBC 2.13 10^6/uL (4.36-5.78); RDW 23.4 % (11.8-14.1); RDW-SD 75.3 fL; WBC 5.41 10^3/uL (4.4-10.8)
[2022-02-27 09:53] LABS: ALT 20 U/L (16-63); AST 23 U/L (15-37); Albumin 3.9 g/dL (3.4-5.0); Alkaline Phosphatase 44 U/L (46-116); Anion Gap 9.5 mmol/L (3-11); BUN 42 mg/dL (7-18); Bilirubin, Total 1.1 mg/dL (0.2-1.0); CO2 24.5 mmol/L (21.0-32.0); Calcium 8.2 mg/dL (8.5-10.1); Chloride 107 mmol/L (98-107); Estimated GFR 32.56 (mL/min/1.73m2); Glucose 123 mg/dL (74-106); Potassium 4.7 mmol/L (3.5-5.1); Sodium 141 mmol/L (136-145); Total Protein 6.7 g/dL (6.4-8.2)
[2022-02-27 09:57] LABS: Anisocytosis 2+; Diff Comment RBC Morph Reviewed; Macrocytosis 2+
[2022-02-27 10:51] VITALS: BP 138/81; PULSE 72; RESP 19; TEMP 36.8; O2SAT 100
[2022-02-27 11:06] VITALS: BP 144/70; PULSE 72; RESP 20; TEMP 36.7; O2SAT 100
[2022-02-27 11:22] VITALS: BP 137/80; PULSE 68; RESP 22; TEMP 36.8; O2SAT 100
[2022-02-27 11:36] VITALS: BP 159/60; PULSE 67; RESP 20; TEMP 36.7; O2SAT 100
[2022-02-27 12:36] VITALS: BP 160/76; PULSE 69; RESP 20; TEMP 36.9; O2SAT 100
[2022-02-27 13:22] VITALS: BP 150/44; PULSE 75; RESP 20; TEMP 36.9; O2SAT 100
[2022-02-27] MEDS: Normal Saline Flush 10 ML SYR IVP (14:22)
== END 2022-03-19 23:59 | disposition home or self-care (01) ==
LOC: INF 01:21
PROVIDERS: Internal Medicine; Visit Provider Internal Medicine Hematology & Oncology
DX: D75.81 Myelofibrosis (principal); D59.5 Paroxysmal nocturnal hemoglobinuria [Marchiafava-Micheli]
CPT/HCPCS: 36415; 36430; 80053; 86850; 86900; 86901; 86920; 85025; P9016

== ENCOUNTER 2022-03-06 04:06 | Outpatient (CLI) | payer MEDICARE, BC, SELFPAY ==
[2022-03-06 08:29] LABS: Abs Immature Grans 0.03 10^3/uL (0.0-0.06); Absolute Basophil Count 0.09 10^3/uL (0.0-0.2); Absolute Eosinophil Count 0.25 10^3/uL (0.0-0.7); Absolute Lymphocyte Count 1.01 10^3/uL (1.2-3.4); Absolute Monocyte Count 0.95 10^3/uL (0.1-0.8); Absolute Neutrophil Count 2.16 10^3/uL (1.2-6.7); Eosinophils % 5.6; HCT 26.1 % (40.0-50.0); HGB 8.4 g/dL (13.5-17.5); Immature Grans % 0.7; Lymphocytes % 22.5; MCH 33.1 pg (27.0-33.0); MCHC 32.2 % (32.0-36.0); MCV 103 fL (80-95); MPV 12.2 fL (8.0-11.0); Monocytes % 21.2; Platelet Count 281 10^3/uL (130-400); RBC 2.54 10^6/uL (4.36-5.78); RDW 22.3 % (11.8-14.1); RDW-SD 73.8 fL; WBC 4.49 10^3/uL (4.4-10.8)
[2022-03-06 08:44] LABS: ALT 23 U/L (16-63); AST 23 U/L (15-37); Albumin 3.9 g/dL (3.4-5.0); Alkaline Phosphatase 45 U/L (46-116); Anion Gap 8.7 mmol/L (3-11); BUN 45 mg/dL (7-18); Bilirubin, Total 1.2 mg/dL (0.2-1.0); CO2 26.3 mmol/L (21.0-32.0); CREATININE 2.1 mg/dL (0.70-1.30); Calcium 8.3 mg/dL (8.5-10.1); Chloride 103 mmol/L (98-107); Estimated GFR 30.78 (mL/min/1.73m2); Glucose 211 mg/dL (74-106); Potassium 4.2 mmol/L (3.5-5.1); Sodium 138 mmol/L (136-145); Total Protein 6.9 g/dL (6.4-8.2)
[2022-03-06 08:49] LABS: Anisocytosis 2+; Diff Comment Diff Reviewed; Hypochromasia 2+; Macrocytosis 2+
[2022-03-06 08:50] LABS: Poikilocytes 2+; Polychromasia Present
== END 2022-03-06 04:07 | disposition home or self-care (01) ==
LOC: LBO 04:06
PROVIDERS: Visit Provider Internal Medicine Hematology & Oncology
DX: D75.81 Myelofibrosis (principal); D59.5 Paroxysmal nocturnal hemoglobinuria [Marchiafava-Micheli]
CPT/HCPCS: 36415; 80053; 86900; 86901; 85025

== ENCOUNTER 2022-04-03 07:53 | Outpatient (CLI) | payer MEDICARE, BC, SELFPAY ==
[2022-04-03 08:27] LABS: Abs Immature Grans 0.04 10^3/uL (0.0-0.06); Absolute Eosinophil Count 0.24 10^3/uL (0.0-0.7); Absolute Monocyte Count 0.96 10^3/uL (0.1-0.8); Absolute Neutrophil Count 4.08 10^3/uL (1.2-6.7); Basophils % 1.5; Eosinophils % 3.7; HCT 25.7 % (40.0-50.0); HGB 8.3 g/dL (13.5-17.5); Immature Grans % 0.6; Lymphocytes % 16.9; MCH 32.9 pg (27.0-33.0); MCHC 32.3 % (32.0-36.0); MCV 102 fL (80-95); MPV 11.9 fL (8.0-11.0); Monocytes % 14.7; Neutrophils % 62.6; RBC 2.52 10^6/uL (4.36-5.78); RDW 22.7 % (11.8-14.1); RDW-SD 74.6 fL; WBC 6.52 10^3/uL (4.4-10.8)
[2022-04-03 08:57] LABS: Anisocytosis 3+; Diff Comment Diff Reviewed; Hypochromasia 2+; Platelet Count 277 10^3/uL (130-400); Polychromasia Present
[2022-04-03 08:58] LABS: Poikilocytes 2+
[2022-04-03 09:10] LABS: ALT 24 U/L (16-63); AST 22 U/L (15-37); Albumin 4.1 g/dL (3.4-5.0); Alkaline Phosphatase 48 U/L (46-116); Anion Gap 10.7 mmol/L (3-11); BUN 46 mg/dL (7-18); Bilirubin, Total 1.2 mg/dL (0.2-1.0); CO2 25.3 mmol/L (21.0-32.0); Calcium 8.6 mg/dL (8.5-10.1); Chloride 103 mmol/L (98-107); Estimated GFR 33.74 (mL/min/1.73m2); Glucose 145 mg/dL (74-106); Potassium 4.9 mmol/L (3.5-5.1); Sodium 139 mmol/L (136-145); Total Protein 6.9 g/dL (6.4-8.2)
== END 2022-04-03 07:54 | disposition home or self-care (01) ==
PROVIDERS: Visit Provider Internal Medicine Hematology & Oncology
DX: D75.81 Myelofibrosis (principal)
CPT/HCPCS: 36415; 80053; 86900; 86901; 85025

== ENCOUNTER 2022-04-18 01:04 | Outpatient (RCR) | payer MEDICARE, BC, SELFPAY ==
[2022-03-20 00:15] VITALS: BP 150/44; PULSE 75; RESP 20; TEMP 36.9
[2022-03-20 08:07] LABS: Abs Immature Grans 0.04 10^3/uL (0.0-0.06); Absolute Eosinophil Count 0.23 10^3/uL (0.0-0.7); Absolute Lymphocyte Count 1.19 10^3/uL (1.2-3.4); Absolute Monocyte Count 0.85 10^3/uL (0.1-0.8); Basophils % 2.1; Eosinophils % 4.9; HCT 22.9 % (40.0-50.0); HGB 7.2 g/dL (13.5-17.5); Immature Grans % 0.8; Lymphocytes % 25.3; MCHC 31.4 % (32.0-36.0); MCV 105 fL (80-95); MPV 12.1 fL (8.0-11.0); Neutrophils % 48.9; Platelet Count 259 10^3/uL (130-400); RBC 2.18 10^6/uL (4.36-5.78); RDW 24.2 % (11.8-14.1); RDW-SD 82.2 fL; WBC 4.71 10^3/uL (4.4-10.8)
[2022-03-20 08:20] LABS: ALT 22 U/L (16-63); AST 22 U/L (15-37); Albumin 3.9 g/dL (3.4-5.0); Alkaline Phosphatase 43 U/L (46-116); Anion Gap 4.9 mmol/L (3-11); BUN 47 mg/dL (7-18); Bilirubin, Total 1.2 mg/dL (0.2-1.0); CO2 25.1 mmol/L (21.0-32.0); Calcium 8.2 mg/dL (8.5-10.1); Chloride 102 mmol/L (98-107); Estimated GFR 33.74 (mL/min/1.73m2); Glucose 219 mg/dL (74-106); Potassium 3.8 mmol/L (3.5-5.1); Sodium 132 mmol/L (136-145); Total Protein 6.9 g/dL (6.4-8.2)
[2022-03-20 08:56] LABS: Anisocytosis 3+; Basophilic Stippling Present; Diff Comment Diff Reviewed; Hypochromasia 2+; Polychromasia Present
[2022-03-21 11:15] VITALS: BP 151/82; PULSE 74; RESP 20; TEMP 36.7; O2SAT 100
[2022-03-21] MEDS: Normal Saline Flush 10 ML SYR IVP ×2 (11:27→14:08)
[2022-03-21 11:30] VITALS: BP 149/74; PULSE 67; RESP 20; TEMP 36.9; O2SAT 100
[2022-03-21 11:45] VITALS: BP 151/79; PULSE 68; RESP 22; TEMP 36.7; O2SAT 98
[2022-03-21 12:15] VITALS: BP 185/76; PULSE 77; RESP 16; TEMP 37.1; O2SAT 99
[2022-03-21 13:15] VITALS: BP 149/77; PULSE 80; RESP 22; TEMP 36.9; O2SAT 98
[2022-04-17 09:00] LABS: Abs Immature Grans 0.04 10^3/uL (0.0-0.06); Absolute Basophil Count 0.11 10^3/uL (0.0-0.2); Absolute Lymphocyte Count 1.21 10^3/uL (1.2-3.4); Absolute Monocyte Count 0.83 10^3/uL (0.1-0.8); Absolute Neutrophil Count 3.12 10^3/uL (1.2-6.7); Eosinophils % 3.6; HCT 24.1 % (40.0-50.0); HGB 7.9 g/dL (13.5-17.5); Immature Grans % 0.7; MCH 33.8 pg (27.0-33.0); MCHC 32.8 % (32.0-36.0); MCV 103 fL (80-95); MPV 12.8 fL (8.0-11.0); Monocytes % 15.1; Neutrophils % 56.6; Platelet Count 253 10^3/uL (130-400); RBC 2.34 10^6/uL (4.36-5.78); RDW 24.4 % (11.8-14.1); RDW-SD 81.5 fL; WBC 5.51 10^3/uL (4.4-10.8)
[2022-04-17 09:16] LABS: ALT 19 U/L (16-63); AST 38 U/L (15-37); Albumin 4.3 g/dL (3.4-5.0); Alkaline Phosphatase 48 U/L (46-116); Anion Gap 7.8 mmol/L (3-11); BUN 47 mg/dL (7-18); Bilirubin, Total 1.4 mg/dL (0.2-1.0); CO2 26.2 mmol/L (21.0-32.0); CREATININE 1.9 mg/dL (0.70-1.30); Calcium 8.9 mg/dL (8.5-10.1); Chloride 102 mmol/L (98-107); Estimated GFR 35.88 (mL/min/1.73m2); Glucose 131 mg/dL (74-106); Potassium 5.1 mmol/L (3.5-5.1); Sodium 136 mmol/L (136-145); Total Protein 7.5 g/dL (6.4-8.2)
[2022-04-17 09:33] LABS: Anisocytosis 2+; Basophilic Stippling Present; Diff Comment Diff Reviewed; Hypochromasia 2+
[2022-04-17 09:34] LABS: Poikilocytes 2+
[2022-04-18 10:15] VITALS: BP 139/82; PULSE 76; RESP 18; TEMP 36.5; O2SAT 99
[2022-04-18] MEDS: Normal Saline Flush 10 ML SYR IVP (10:29)
[2022-04-18 10:35] VITALS: BP 122/73; PULSE 70; RESP 17; TEMP 36.6; O2SAT 100
[2022-04-18 10:50] VITALS: BP 132/76; PULSE 73; RESP 17; TEMP 36.4; O2SAT 100
[2022-04-18 11:20] VITALS: BP 155/88; PULSE 81; RESP 17; TEMP 36.6; O2SAT 100
[2022-04-18 12:25] VITALS: BP 129/80; PULSE 74; RESP 17; TEMP 36.8; O2SAT 100
== END 2022-04-18 23:59 | disposition home or self-care (01) ==
LOC: INF 01:04
PROVIDERS: Visit Provider Internal Medicine Hematology & Oncology
DX: D75.1 Secondary polycythemia (principal); D75.81 Myelofibrosis
CPT/HCPCS: 36415; 36430; 80053; 86850; 86900; 86901; 86920; 85025; P9016

== ENCOUNTER 2023-01-15 08:00 | Outpatient (RCR) | payer MEDICARE, BC, SELFPAY ==
[2022-12-18 08:17] LABS: Abs Immature Grans 0.05 10^3/uL (0.0-0.06); Absolute Basophil Count 0.08 10^3/uL (0.0-0.2); Absolute Eosinophil Count 0.26 10^3/uL (0.0-0.7); Absolute Lymphocyte Count 1.42 10^3/uL (1.2-3.4); Absolute Monocyte Count 1.16 10^3/uL (0.1-0.8); Absolute Neutrophil Count 2.44 10^3/uL (1.2-6.7); Basophils % 1.5; Eosinophils % 4.8; HCT 22.7 % (40.0-50.0); HGB 7.4 g/dL (13.5-17.5); Immature Grans % 0.9; Lymphocytes % 26.2; MCH 31.6 pg (27.0-33.0); MCHC 32.6 % (32.0-36.0); MCV 97 fL (80-95); MPV 11.6 fL (8.0-11.0); Monocytes % 21.4; Neutrophils % 45.2; Platelet Count 266 10^3/uL (130-400); RBC 2.34 10^6/uL (4.36-5.78); RDW 26.4 % (11.8-14.1); RDW-SD 79.1 fL; WBC 5.41 10^3/uL (4.4-10.8)
[2022-12-18 08:36] LABS: ALT 24 U/L (16-63); AST 24 U/L (15-37); Albumin 4.1 g/dL (3.4-5.0); Alkaline Phosphatase 56 U/L (46-116); Anion Gap 9.7 mmol/L (3-11); Anisocytosis 3+; BUN 49 mg/dL (7-18); Bilirubin, Total 1.4 mg/dL (0.2-1.0); CO2 24.3 mmol/L (21.0-32.0); CREATININE 2.2 mg/dL (0.70-1.30); Calcium 8.5 mg/dL (8.5-10.1); Chloride 104 mmol/L (98-107); Diff Comment RBC Morph Reviewed; Estimated GFR 29.91 (mL/min/1.73m2); Glucose 177 mg/dL (74-106); Potassium 4.3 mmol/L (3.5-5.1); Sodium 138 mmol/L (136-145); Total Protein 7.1 g/dL (6.4-8.2)
[2022-12-18 11:52] VITALS: BP 134/75; PULSE 83; RESP 17; TEMP 36.5; O2SAT 100
[2022-12-18] MEDS: Heparin 500 UNITS/5 ML SYRINGE IV (12:04)
[2022-12-18] MEDS: Normal Saline Flush 10 ML SYR IVP (12:04)
[2022-12-18 12:07] VITALS: BP 120/76; PULSE 78; RESP 17; TEMP 36.8; O2SAT 99
[2022-12-18 12:24] VITALS: BP 134/78; PULSE 79; RESP 16; TEMP 36.6; O2SAT 100
[2022-12-18 12:55] VITALS: BP 137/76; PULSE 71; RESP 16; TEMP 36.7; O2SAT 100
[2022-12-18 13:55] VITALS: BP 123/76; PULSE 71; RESP 17; TEMP 36.8; O2SAT 99
[2023-01-01] MEDS: Normal Saline Flush 10 ML SYR IVP ×2 (08:49→11:53)
[2023-01-01 09:34] LABS: Abs Immature Grans 0.02 10^3/uL (0.0-0.06); Absolute Basophil Count 0.08 10^3/uL (0.0-0.2); Absolute Eosinophil Count 0.26 10^3/uL (0.0-0.7); Absolute Lymphocyte Count 1.17 10^3/uL (1.2-3.4); Absolute Monocyte Count 0.94 10^3/uL (0.1-0.8); Absolute Neutrophil Count 2.11 10^3/uL (1.2-6.7); Basophils % 1.7; Eosinophils % 5.7; HGB 7.2 g/dL (13.5-17.5); Immature Grans % 0.4; Lymphocytes % 25.5; MCH 32.3 pg (27.0-33.0); MCHC 32.7 % (32.0-36.0); MCV 99 fL (80-95); MPV 12.5 fL (8.0-11.0); Monocytes % 20.5; Neutrophils % 46.2; Platelet Count 294 10^3/uL (130-400); RBC 2.23 10^6/uL (4.36-5.78); RDW 26.6 % (11.8-14.1); RDW-SD 81.3 fL; WBC 4.58 10^3/uL (4.4-10.8)
[2023-01-01 09:36] LABS: Anisocytosis 1+; Diff Comment RBC Morph Reviewed; Macrocytosis 1+
[2023-01-01 11:47] VITALS: BP 137/51; PULSE 72; RESP 18; TEMP 37; O2SAT 100
[2023-01-01] MEDS: Heparin 500 UNITS/5 ML SYRINGE IV (11:54)
[2023-01-01 12:05] VITALS: BP 139/58; PULSE 80; RESP 18; TEMP 36.1; O2SAT 99
[2023-01-01 12:20] VITALS: BP 134/58; PULSE 73; RESP 18; TEMP 37; O2SAT 100
[2023-01-01 12:30] VITALS: BP 123/54; PULSE 78; RESP 18; TEMP 36.9; O2SAT 100
[2023-01-01 13:45] VITALS: BP 128/53; PULSE 78; RESP 17; TEMP 36.9; O2SAT 99
[2023-01-15 08:42] LABS: Abs Immature Grans 0.12 10^3/uL (0.0-0.06); Absolute Basophil Count 0.16 10^3/uL (0.0-0.2); Absolute Eosinophil Count 0.33 10^3/uL (0.0-0.7); Absolute Lymphocyte Count 1.94 10^3/uL (1.2-3.4); Absolute Monocyte Count 1.47 10^3/uL (0.1-0.8); Absolute Neutrophil Count 4.01 10^3/uL (1.2-6.7); Eosinophils % 4.1; HGB 7.8 g/dL (13.5-17.5); Immature Grans % 1.5; Lymphocytes % 24.2; MCHC 32.5 % (32.0-36.0); MCV 95 fL (80-95); MPV 11.8 fL (8.0-11.0); Monocytes % 18.3; Neutrophils % 49.9; Platelet Count 502 10^3/uL (130-400); RBC 2.52 10^6/uL (4.36-5.78); RDW 24.1 % (11.8-14.1); RDW-SD 69.3 fL; WBC 8.03 10^3/uL (4.4-10.8)
[2023-01-15 09:10] LABS: Anisocytosis 2+; Basophilic Stippling 1+; Diff Comment RBC Morph Reviewed
[2023-01-15] MEDS: Normal Saline Flush 10 ML SYR IVP ×2 (09:10→11:13)
[2023-01-15 11:07] VITALS: BP 180/81; PULSE 70; RESP 18; TEMP 37; O2SAT 96
[2023-01-15 11:22] VITALS: BP 146/79; PULSE 74; RESP 18; TEMP 37.7; O2SAT 100
[2023-01-15 11:52] VITALS: BP 160/83; PULSE 73; RESP 18; TEMP 37.3; O2SAT 100
[2023-01-15 12:52] VITALS: BP 160/87; PULSE 73; RESP 18; TEMP 37; O2SAT 100
[2023-01-15] MEDS: Heparin 500 UNITS/5 ML SYRINGE IV (13:10)
== END 2023-01-16 23:59 | disposition home or self-care (01) ==
LOC: INF 08:00
PROVIDERS: Internal Medicine Hematology & Oncology; Visit Provider Internal Medicine
DX: D59.5 Paroxysmal nocturnal hemoglobinuria [Marchiafava-Micheli] (principal); Z45.2 Encounter for adjustment and management of vascular access device
CPT/HCPCS: 36415; 36430; 36591; 80053; 86850; 86900; 86901; 86920; 85025; P9016

== ENCOUNTER 2023-02-12 10:00 | Outpatient (RCR) | payer MEDICARE, BC, SELFPAY ==
[2023-01-17 00:19] VITALS: BP 160/87; PULSE 73; RESP 18; TEMP 37
[2023-01-29] MEDS: Normal Saline Flush 10 ML SYR IVP ×2 (08:24→12:00)
[2023-01-29 08:33] LABS: Abs Immature Grans 0.23 10^3/uL (0.0-0.06); Absolute Basophil Count 0.18 10^3/uL (0.0-0.2); Absolute Eosinophil Count 0.33 10^3/uL (0.0-0.7); Absolute Lymphocyte Count 1.63 10^3/uL (1.2-3.4); Absolute Monocyte Count 1.35 10^3/uL (0.1-0.8); Absolute Neutrophil Count 5.26 10^3/uL (1.2-6.7); Eosinophils % 3.7; HCT 22.3 % (40.0-50.0); HGB 7.2 g/dL (13.5-17.5); Immature Grans % 2.6; Lymphocytes % 18.2; MCHC 32.3 % (32.0-36.0); MCV 96 fL (80-95); MPV 12.1 fL (8.0-11.0); Neutrophils % 58.5; Nucleated RBC 0.4 % (0.0-0.3); Platelet Count 507 10^3/uL (130-400); RBC 2.32 10^6/uL (4.36-5.78); RDW 23.1 % (11.8-14.1); RDW-SD 67.8 fL; WBC 8.98 10^3/uL (4.4-10.8)
[2023-01-29 09:09] LABS: Diff Comment RBC Morph Reviewed
[2023-01-29 09:10] LABS: Anisocytosis 2+; Polychromasia Present
[2023-01-29 11:41] VITALS: BP 138/89; PULSE 78; RESP 17; TEMP 36.7; O2SAT 100
[2023-01-29 11:55] VITALS: BP 163/63; PULSE 85; RESP 17; TEMP 36.9; O2SAT 99
[2023-01-29] MEDS: Heparin 500 UNITS/5 ML SYRINGE IV (12:00)
[2023-01-29 12:10] VITALS: BP 127/81; PULSE 77; RESP 17; TEMP 36.9; O2SAT 100
[2023-01-29 12:40] VITALS: BP 143/81; PULSE 76; RESP 17; TEMP 37; O2SAT 100
[2023-01-29 13:51] VITALS: BP 128/72; PULSE 78; RESP 17; TEMP 36.6; O2SAT 100
[2023-02-12] MEDS: Normal Saline Flush 10 ML SYR IVP ×2 (08:09→10:40)
[2023-02-12 08:17] LABS: Abs Immature Grans 0.12 10^3/uL (0.0-0.06); Absolute Basophil Count 0.13 10^3/uL (0.0-0.2); Absolute Eosinophil Count 0.22 10^3/uL (0.0-0.7); Absolute Lymphocyte Count 1.47 10^3/uL (1.2-3.4); Absolute Monocyte Count 1.66 10^3/uL (0.1-0.8); Absolute Neutrophil Count 6.11 10^3/uL (1.2-6.7); Basophils % 1.3; Eosinophils % 2.3; HCT 21.9 % (40.0-50.0); HGB 7.1 g/dL (13.5-17.5); Immature Grans % 1.2; Lymphocytes % 15.1; MCH 31.3 pg (27.0-33.0); MCHC 32.4 % (32.0-36.0); MCV 97 fL (80-95); MPV 12.5 fL (8.0-11.0); Monocytes % 17.1; Nucleated RBC 0.3 % (0.0-0.3); Platelet Count 460 10^3/uL (130-400); RBC 2.27 10^6/uL (4.36-5.78); RDW 23.9 % (11.8-14.1); WBC 9.71 10^3/uL (4.4-10.8)
[2023-02-12 08:43] LABS: Anisocytosis 2+; Diff Comment Diff Reviewed; Polychromasia Present
[2023-02-12 08:44] LABS: Spherocytes 1+
[2023-02-12] MEDS: Heparin 500 UNITS/5 ML SYRINGE IV (10:40)
[2023-02-12 10:50] VITALS: BP 130/83; PULSE 77; RESP 17; TEMP 36.7; O2SAT 99
[2023-02-12 11:05] VITALS: BP 128/78; PULSE 79; RESP 18; TEMP 36.4; O2SAT 99
[2023-02-12 11:20] VITALS: BP 126/76; PULSE 74; RESP 17; TEMP 36.7; O2SAT 100
[2023-02-12 11:50] VITALS: BP 142/83; PULSE 85; RESP 17; TEMP 36.6; O2SAT 100
[2023-02-12 12:40] VITALS: BP 100/71; PULSE 80; RESP 17; TEMP 36.5; O2SAT 100
== END 2023-02-16 23:59 | disposition home or self-care (01) ==
LOC: INF 10:00
PROVIDERS: Visit Provider Internal Medicine
DX: D59.5 Paroxysmal nocturnal hemoglobinuria [Marchiafava-Micheli] (principal); Z45.2 Encounter for adjustment and management of vascular access device; D75.81 Myelofibrosis
CPT/HCPCS: 36430; 36591; 86850; 86900; 86901; 86920; 85025; P9016

== ENCOUNTER 2023-03-12 11:00 | Outpatient (RCR) | payer MEDICARE, BC, SELFPAY ==
[2023-02-17 00:07] VITALS: BP 100/71; PULSE 80; RESP 17; TEMP 36.5
[2023-02-26] MEDS: Normal Saline Flush 10 ML SYR IVP (08:32)
[2023-02-26] MEDS: Heparin 500 UNITS/5 ML SYRINGE IV (08:33)
[2023-02-26 09:44] LABS: HGB 7.3 g/dL (13.5-17.5); RBC 2.25 10^6/uL (4.36-5.78); WBC 6.44 10^3/uL (4.4-10.8)
[2023-02-26 09:45] LABS: Absolute Basophil Count 0.14 10^3/uL (0.0-0.2); Absolute Eosinophil Count 0.27 10^3/uL (0.0-0.7); Absolute Lymphocyte Count 1.63 10^3/uL (1.2-3.4); Absolute Monocyte Count 1.34 10^3/uL (0.1-0.8); Absolute Neutrophil Count 2.94 10^3/uL (1.2-6.7); Basophils % 2.2; Eosinophils % 4.2; HCT 22.2 % (40.0-50.0); Immature Grans % 1.9; Lymphocytes % 25.3; MCH 32.4 pg (27.0-33.0); MCHC 32.9 % (32.0-36.0); MCV 99 fL (80-95); MPV 12.3 fL (8.0-11.0); Monocytes % 20.8; Neutrophils % 45.6; Nucleated RBC 0.5 % (0.0-0.3); Platelet Count 483 10^3/uL (130-400); RDW 25.1 % (11.8-14.1); RDW-SD 68.2 fL
[2023-02-26 09:46] LABS: Abs Immature Grans 0.12 10^3/uL (0.0-0.06); Anisocytosis 2+; Diff Comment RBC Morph Reviewed
[2023-02-26 10:08] VITALS: BP 150/82; PULSE 70; RESP 17; TEMP 36.9; O2SAT 100
[2023-02-26 10:23] VITALS: BP 131/81; PULSE 80; RESP 17; TEMP 37.7; O2SAT 100
[2023-02-26 10:45] VITALS: BP 126/65; PULSE 71; RESP 17; TEMP 37.3; O2SAT 100
[2023-02-26 11:20] VITALS: BP 144/79; PULSE 78; RESP 16; TEMP 37.3; O2SAT 99
[2023-02-26 11:50] VITALS: BP 171/82; PULSE 67; RESP 17; TEMP 37; O2SAT 99
[2023-03-12 08:40] LABS: Abs Immature Grans 0.17 10^3/uL (0.0-0.06); Absolute Eosinophil Count 0.28 10^3/uL (0.0-0.7); Absolute Neutrophil Count 4.96 10^3/uL (1.2-6.7); HCT 23.2 % (40.0-50.0); HGB 7.5 g/dL (13.5-17.5); MCH 31.5 pg (27.0-33.0); MCHC 32.3 % (32.0-36.0); MCV 98 fL (80-95); MPV 12.4 fL (8.0-11.0); RBC 2.38 10^6/uL (4.36-5.78); RDW 23.4 % (11.8-14.1); WBC 9.21 10^3/uL (4.4-10.8)
[2023-03-12 09:00] LABS: ALT 17 U/L (16-63); AST 22 U/L (15-37); Albumin 3.8 g/dL (3.4-5.0); Alkaline Phosphatase 71 U/L (46-116); Anion Gap 9.8 mmol/L (3-11); BUN 56 mg/dL (7-18); Bilirubin, Total 1.3 mg/dL (0.2-1.0); CO2 23.2 mmol/L (21.0-32.0); CREATININE 2.2 mg/dL (0.70-1.30); Calcium 8.3 mg/dL (8.5-10.1); Chloride 104 mmol/L (98-107); Estimated GFR 29.91 (mL/min/1.73m2); Glucose 206 mg/dL (74-106); Potassium 3.9 mmol/L (3.5-5.1); Sodium 137 mmol/L (136-145); Total Protein 6.7 g/dL (6.4-8.2)
[2023-03-12] MEDS: Normal Saline Flush 10 ML SYR IVP (09:01)
[2023-03-12 09:02] LABS: Anisocytosis 1+; Basophilic Stippling Present; Hypochromasia 1+; Macrocytosis 1+; Platelet Count 512 10^3/uL (130-400); Polychromasia Present
[2023-03-12] MEDS: Heparin 500 UNITS/5 ML SYRINGE IV (09:02)
[2023-03-12 10:54] VITALS: BP 134/78; PULSE 91; RESP 17; TEMP 36.8; O2SAT 100
[2023-03-12 11:10] VITALS: BP 113/68; PULSE 78; RESP 17; TEMP 37.1; O2SAT 100
[2023-03-12 11:25] VITALS: BP 146/85; PULSE 86; RESP 17; TEMP 36.8; O2SAT 99
[2023-03-12 11:55] VITALS: BP 106/55; PULSE 77; RESP 17; TEMP 36.7; O2SAT 100
[2023-03-12 12:39] LABS: Absolute Lymphocyte Count 1.93 10^3/uL (1.2-3.4)
[2023-03-12 12:40] LABS: Absolute Basophil Count 0.09 10^3/uL (0.0-0.2); Absolute Monocyte Count 1.75 10^3/uL (0.1-0.8)
[2023-03-12 12:41] LABS: Metamyelocytes % 1; Myelocytes % 1
[2023-03-12 12:42] LABS: Diff Comment Manual Differential
[2023-03-12 12:45] VITALS: BP 138/75; PULSE 83; RESP 17; TEMP 37.1; O2SAT 99
== END 2023-03-19 23:59 | disposition home or self-care (01) ==
LOC: INF 11:00
PROVIDERS: Nurse Practitioner Family; Visit Provider Internal Medicine
DX: D59.5 Paroxysmal nocturnal hemoglobinuria [Marchiafava-Micheli] (principal); D75.81 Myelofibrosis; D46.Z Other myelodysplastic syndromes; Z45.2 Encounter for adjustment and management of vascular access device
CPT/HCPCS: 36430; 36591; 80053; 86850; 86900; 86901; 86920; 85025; P9016

== ENCOUNTER 2023-04-09 03:27 | Outpatient (RCR) | payer MEDICARE, BC, SELFPAY ==
[2023-03-20 00:16] VITALS: BP 138/75; PULSE 83; RESP 17; TEMP 37.1
[2023-03-26] MEDS: Normal Saline Flush 10 ML SYR IVP ×2 (07:52→10:39)
[2023-03-26 08:24] LABS: Abs Immature Grans 0.15 10^3/uL (0.0-0.06); Absolute Basophil Count 0.17 10^3/uL (0.0-0.2); Absolute Eosinophil Count 0.26 10^3/uL (0.0-0.7); Absolute Monocyte Count 1.41 10^3/uL (0.1-0.8); Absolute Neutrophil Count 4.79 10^3/uL (1.2-6.7); HCT 23.1 % (40.0-50.0); HGB 7.5 g/dL (13.5-17.5); Immature Grans % 1.7; Lymphocytes % 21.9; MCH 32.6 pg (27.0-33.0); MCHC 32.5 % (32.0-36.0); MCV 100 fL (80-95); MPV 12.5 fL (8.0-11.0); Monocytes % 16.2; Neutrophils % 55.2; Nucleated RBC 0.6 % (0.0-0.3); Platelet Count 512 10^3/uL (130-400); RDW 24.3 % (11.8-14.1); RDW-SD 65.1 fL; WBC 8.68 10^3/uL (4.4-10.8)
[2023-03-26 08:45] LABS: ALT 23 U/L (16-63); AST 27 U/L (15-37); Albumin 3.9 g/dL (3.4-5.0); Alkaline Phosphatase 73 U/L (46-116); Anion Gap 9.8 mmol/L (3-11); BUN 45 mg/dL (7-18); Bilirubin, Total 1.9 mg/dL (0.2-1.0); CO2 25.2 mmol/L (21.0-32.0); CREATININE 2.2 mg/dL (0.70-1.30); Calcium 8.5 mg/dL (8.5-10.1); Chloride 102 mmol/L (98-107); Estimated GFR 29.91 (mL/min/1.73m2); Glucose 209 mg/dL (74-106); Sodium 137 mmol/L (136-145)
[2023-03-26 08:59] LABS: Anisocytosis 3+; Diff Comment RBC Morph Reviewed; Macrocytosis 1+; Polychromasia Present
[2023-03-26 10:37] VITALS: BP 160/77; PULSE 68; RESP 17; TEMP 36.6; O2SAT 99
[2023-03-26] MEDS: Heparin 500 UNITS/5 ML SYRINGE IV (10:39)
[2023-03-26 10:50] VITALS: BP 145/72; PULSE 66; RESP 17; TEMP 37; O2SAT 100
[2023-03-26 11:05] VITALS: BP 149/73; PULSE 71; RESP 17; TEMP 37.2; O2SAT 100
[2023-03-26 11:35] VITALS: BP 154/69; PULSE 66; RESP 17; TEMP 37.2; O2SAT 100
[2023-03-26 12:35] VITALS: BP 130/70; PULSE 69; RESP 17; TEMP 37; O2SAT 99
[2023-04-09] MEDS: Normal Saline Flush 10 ML SYR IVP ×2 (07:59→10:23)
[2023-04-09 08:38] LABS: Abs Immature Grans 0.14 10^3/uL (0.0-0.06); Absolute Basophil Count 0.16 10^3/uL (0.0-0.2); Absolute Eosinophil Count 0.21 10^3/uL (0.0-0.7); Absolute Lymphocyte Count 1.49 10^3/uL (1.2-3.4); Absolute Monocyte Count 1.42 10^3/uL (0.1-0.8); Absolute Neutrophil Count 3.45 10^3/uL (1.2-6.7); Basophils % 2.3; Eosinophils % 3.1; HCT 24.1 % (40.0-50.0); HGB 7.6 g/dL (13.5-17.5); Lymphocytes % 21.7; MCH 30.5 pg (27.0-33.0); MCHC 31.5 % (32.0-36.0); MCV 97 fL (80-95); MPV 12.4 fL (8.0-11.0); Monocytes % 20.7; Neutrophils % 50.2; Nucleated RBC 0.6 % (0.0-0.3); Platelet Count 469 10^3/uL (130-400); RBC 2.49 10^6/uL (4.36-5.78); RDW 24.9 % (11.8-14.1); RDW-SD 63.7 fL; WBC 6.87 10^3/uL (4.4-10.8)
[2023-04-09 08:56] LABS: ALT 23 U/L (16-63); AST 22 U/L (15-37); Albumin 3.9 g/dL (3.4-5.0); Alkaline Phosphatase 71 U/L (46-116); Anion Gap 11.2 mmol/L (3-11); BUN 55 mg/dL (7-18); Bilirubin, Total 1.4 mg/dL (0.2-1.0); CO2 23.8 mmol/L (21.0-32.0); CREATININE 2.2 mg/dL (0.70-1.30); Calcium 8.7 mg/dL (8.5-10.1); Chloride 101 mmol/L (98-107); Estimated GFR 29.91 (mL/min/1.73m2); Glucose 268 mg/dL (74-106); Potassium 4.1 mmol/L (3.5-5.1); Sodium 136 mmol/L (136-145); Total Protein 7.1 g/dL (6.4-8.2)
[2023-04-09 08:59] LABS: Anisocytosis 2+; Diff Comment RBC Morph Reviewed
[2023-04-09] MEDS: Heparin 500 UNITS/5 ML SYRINGE IV (10:24)
[2023-04-09 10:26] VITALS: BP 144/82; PULSE 80; RESP 17; TEMP 36.5; O2SAT 100
[2023-04-09 10:40] VITALS: BP 127/79; PULSE 84; RESP 17; TEMP 36.8; O2SAT 100
[2023-04-09 10:58] VITALS: BP 139/75; PULSE 75; RESP 17; TEMP 36.7; O2SAT 99
[2023-04-09 11:27] VITALS: BP 140/82; PULSE 80; RESP 17; TEMP 37.2; O2SAT 99
[2023-04-09 12:25] VITALS: BP 141/76; PULSE 75; RESP 17; TEMP 37.2; O2SAT 98
== END 2023-04-18 23:59 | disposition home or self-care (01) ==
LOC: INF 03:27
PROVIDERS: Internal Medicine Hematology & Oncology; Visit Provider Internal Medicine
DX: D59.5 Paroxysmal nocturnal hemoglobinuria [Marchiafava-Micheli] (principal); D46.Z Other myelodysplastic syndromes; Z45.2 Encounter for adjustment and management of vascular access device
CPT/HCPCS: 36430; 36591; 80053; 86850; 86900; 86901; 86920; 96523; 85025; P9016

== ENCOUNTER 2023-05-07 10:30 | Outpatient (RCR) | payer MEDICARE, BC, SELFPAY ==
[2023-04-19 00:15] VITALS: BP 141/76; PULSE 75; RESP 17; TEMP 37.2
[2023-04-23] MEDS: Normal Saline Flush 10 ML SYR IVP ×2 (07:44→09:52)
[2023-04-23 07:51] LABS: Abs Immature Grans 0.13 10^3/uL (0.0-0.06); Absolute Basophil Count 0.14 10^3/uL (0.0-0.2); Absolute Eosinophil Count 0.23 10^3/uL (0.0-0.7); Absolute Lymphocyte Count 1.55 10^3/uL (1.2-3.4); Absolute Monocyte Count 1.16 10^3/uL (0.1-0.8); Absolute Neutrophil Count 2.85 10^3/uL (1.2-6.7); Basophils % 2.3; Eosinophils % 3.8; HCT 23.8 % (40.0-50.0); HGB 7.5 g/dL (13.5-17.5); Immature Grans % 2.1; Lymphocytes % 25.6; MCHC 31.5 % (32.0-36.0); MCV 98 fL (80-95); MPV 11.9 fL (8.0-11.0); Monocytes % 19.1; Neutrophils % 47.1; Nucleated RBC 0.5 % (0.0-0.3); Platelet Count 412 10^3/uL (130-400); RBC 2.42 10^6/uL (4.36-5.78); WBC 6.06 10^3/uL (4.4-10.8)
[2023-04-23 08:04] LABS: ALT 23 U/L (16-63); AST 20 U/L (15-37); Albumin 3.8 g/dL (3.4-5.0); Alkaline Phosphatase 71 U/L (46-116); Anion Gap 7.7 mmol/L (3-11); BUN 47 mg/dL (7-18); Bilirubin, Total 1.3 mg/dL (0.2-1.0); CO2 25.3 mmol/L (21.0-32.0); CREATININE 2.1 mg/dL (0.70-1.30); Calcium 8.7 mg/dL (8.5-10.1); Chloride 104 mmol/L (98-107); Estimated GFR 31.63 (mL/min/1.73m2); Glucose 168 mg/dL (74-106); Potassium 4.2 mmol/L (3.5-5.1); Sodium 137 mmol/L (136-145); Total Protein 6.8 g/dL (6.4-8.2)
[2023-04-23] MEDS: Heparin 500 UNITS/5 ML SYRINGE IV (09:52)
[2023-04-23 10:04] VITALS: BP 145/84; PULSE 73; RESP 17; TEMP 35.8; O2SAT 100
[2023-04-23 10:19] VITALS: BP 142/82; PULSE 73; RESP 17; TEMP 35.8; O2SAT 100
[2023-04-23 10:35] VITALS: BP 138/81; PULSE 72; RESP 17; TEMP 37.5; O2SAT 98
[2023-04-23 11:05] VITALS: BP 143/84; PULSE 68; RESP 17; TEMP 36; O2SAT 100
[2023-04-23 12:00] VITALS: BP 150/82; PULSE 73; RESP 17; TEMP 36.2; O2SAT 100
[2023-05-07] MEDS: Normal Saline Flush 10 ML SYR IVP ×2 (08:57→14:09)
[2023-05-07 09:44] LABS: Abs Immature Grans 0.07 10^3/uL (0.0-0.06); Absolute Basophil Count 0.14 10^3/uL (0.0-0.2); Absolute Eosinophil Count 0.24 10^3/uL (0.0-0.7); Absolute Lymphocyte Count 1.49 10^3/uL (1.2-3.4); Absolute Monocyte Count 1.09 10^3/uL (0.1-0.8); Absolute Neutrophil Count 2.66 10^3/uL (1.2-6.7); Basophils % 2.5; Eosinophils % 4.2; HCT 23.8 % (40.0-50.0); HGB 7.8 g/dL (13.5-17.5); Immature Grans % 1.2; Lymphocytes % 26.2; MCH 32.1 pg (27.0-33.0); MCHC 32.8 % (32.0-36.0); MCV 98 fL (80-95); MPV 12.4 fL (8.0-11.0); Monocytes % 19.2; Neutrophils % 46.7; Nucleated RBC 0.5 % (0.0-0.3); Platelet Count 446 10^3/uL (130-400); RBC 2.43 10^6/uL (4.36-5.78); WBC 5.69 10^3/uL (4.4-10.8)
[2023-05-07 10:03] LABS: ALT 25 U/L (16-63); AST 23 U/L (15-37); Albumin 3.9 g/dL (3.4-5.0); Alkaline Phosphatase 76 U/L (46-116); Anion Gap 8.7 mmol/L (3-11); BUN 47 mg/dL (7-18); Bilirubin, Total 1.2 mg/dL (0.2-1.0); CO2 24.3 mmol/L (21.0-32.0); CREATININE 2.1 mg/dL (0.70-1.30); Calcium 8.7 mg/dL (8.5-10.1); Chloride 103 mmol/L (98-107); Estimated GFR 31.63 (mL/min/1.73m2); Glucose 175 mg/dL (74-106); Potassium 4.6 mmol/L (3.5-5.1); Sodium 136 mmol/L (136-145)
[2023-05-07 10:10] LABS: Anisocytosis 2+; Diff Comment RBC Morph Reviewed
[2023-05-07 12:02] VITALS: BP 138/85; PULSE 78; RESP 18; TEMP 36.6; O2SAT 99
[2023-05-07 12:17] VITALS: BP 142/83; PULSE 81; RESP 17; TEMP 36.8; O2SAT 99
[2023-05-07 12:38] VITALS: BP 136/84; PULSE 76; RESP 17; TEMP 36.5; O2SAT 98
[2023-05-07 13:05] VITALS: BP 164/82; PULSE 83; RESP 17; TEMP 36.8; O2SAT 98
[2023-05-07 14:08] VITALS: BP 139/61; PULSE 80; RESP 17; TEMP 36.8; O2SAT 98
[2023-05-07] MEDS: Heparin 500 UNITS/5 ML SYRINGE IV (14:09)
== END 2023-05-19 23:59 | disposition home or self-care (01) ==
LOC: INF 10:30
PROVIDERS: Internal Medicine Hematology & Oncology; Visit Provider Internal Medicine
DX: D59.5 Paroxysmal nocturnal hemoglobinuria [Marchiafava-Micheli] (principal); Z45.2 Encounter for adjustment and management of vascular access device
CPT/HCPCS: 36430; 36591; 80053; 86850; 86900; 86901; 86920; 96523; 85025; P9016